=== PATIENT | female | born 1945 | race Two or more races ===

== ENCOUNTER 2018-12-28 16:47 | Inpatient (IN) | payer MEDICARE, MEDICAID ==
[2018-12-28] VITALS (9 sets, daily range): BP systolic 67–109; BP diastolic 49–73
[~2018-12-28] VITALS: Ht 157.5 cm; Wt 63.5 kg
--- NOTE | 2018-12-28 17:13 | NUR ---
ED Nurse Note: Pt BIBA from her MD appointment due to complaints of abdominal pain /. Non radiating x 2 days. Pt went to her MD and upon arrival, she was hypotensive. Upona arrival to ED, pt had a BP of 69/50. Skin warm tot ouch. Skin appeared to be jaundice in color. Hx of bile duct stage IV cancer and noted to have a drainage on her LLQ. A + O x4. Yakut speaking. Pt is full code.
--- NOTE | 2018-12-28 17:25 | NUR ---
ED Nurse Note: Xray has been completed.
[2018-12-28 17:31] LABS: HEMATOCRIT 40.9 % (37.0-47.0); HEMOGLOBIN 13.6 G/DL (12.0-16.0); MEAN CORPUSCULAR VOLUME 90 FL (80-99); PLATELET COUNT 232 K/UL (150-450); RED BLOOD COUNT 4.54 M/UL (4.20-5.40); WHITE BLOOD COUNT 14.9 K/UL (4.8-10.8)
--- NOTE | 2018-12-28 18:22 | NUR ---
ED Nurse Note: BLOOD DRAWN FOR CMP AND SENT TO LAB.
--- NOTE | 2018-12-28 18:37 | Emergency Room Report ---
History of Present Illness General Chief Complaint: General Complaint Source: Family Member, Medical Record Present Illness HPI Patient presents from Dr alcantara office The son reports that they had presented to the office secondary to increased abdominal pain patient was found to be ill appearing and 911 was contacted Patient was brought to the emergency room Patient herself appears confused and somnolent also appears short of breath The son provides information of the patient has been diagnosed with metastatic disease involving the biliary tract also left upper chest region possibly They were at 2 different hospitals previously At [facility] last week for about 7 days And are being considered for possible chemotherapy/radiation Patient has been weaker than usual over the past several days Also increased cough Allergies: Coded Allergies: No Known Allergies (Unverified , 12/28/18) Patient History Limited by: medical condition Past Medical History: see triage record Pertinent Family History: none Now: No Reviewed Nursing Documentation: PMH: Agreed; PSxH: Agreed Nursing Documentation-PMH Past Medical History: No History, Except For Hx Asthma: Yes Hx Cancer: Yes - Colon, Breast Review of Systems All Other Systems: limited - Other than the ones mentioned in the history of present illness all others are reviewed however they do stay limited due to the patient's mental status Physical Exam Vital Signs Date Time Temp Pulse Resp B/P (MAP) Pulse Ox O2 Delivery O2 Flow Rate FiO2 12/28/18 16:43 98 16 66/50 100 Room Air 12/28/18 17:15 15.0 95 12/28/18 17:15 97.8 Sp02 EP Interpretation: reviewed, normal General Appearance: moderate distress - Patient appears jaundiced, presents hypotensive Head: normocephalic, atraumatic Eyes: bilateral eye PERRL, bilateral eye other - Scleral icterus ENT: normal pharynx, no angioedema Neck: supple, thyroid normal Respiratory: crackles - Bilaterally with mild wheezing Cardiovascular #1: regular rate, rhythm Gastrointestinal: soft, other - Diffusely uncomfortable Genitourinary: no CVA tenderness Musculoskeletal: other - Patient is weak however able to move extremities Neurologic: oriented x3 - Sluggish however responds when coached, responsive Skin: other - Jaundice Lymphatic: no adenopathy Procedures Critical Care Time Critical Care Time 70 minutes for multiple re-evaluations, initial critical presentation concerning for cardiopulmonary arrest and possible not including any procedural time Central Line Central Line : Consent: Emergent Central Line Lumen: triple Maximal Sterile Barrier Tech: yes cap, yes mask, yes sterile gown, yes sterile gloves, yes large sterile sheet, yes hand hygiene, yes chlorhexidine prep Central Line Postion: femoral (R) Anesthesia: Lidocaine cc's of anesthesia: 4 Complications: none Central Line Post Position: sutured Attempts: One Patient Tolerated: Well Complications: None Medical Decision Making Diagnostic Impression: Primary Impression: Cholangiocarcinoma Additional Impressions: Septic shock Hyperbilirubinemia ER Course Patient presents in critical condition Hypotensive Patient has been recently diagnosed with cholangiocarcinoma she has been to 2 other hospitals and most recently at [facility] last week Patient contacted her real estate acquisition analyst after not feeling well with increased abdominal pain upon presenting to the office patient was sent 911 initially requested for [facility] given her recent hospitalization there however patient was routed to our hospital for most accessible I spoke to the patient's Hemoccult just patient has critical diagnoses including metastatic disease Patient's family reported full CODE STATUS After aggressive IV hydration patient required central line placement for possible pressor initiation CT imaging was initially ordered as well for IV contrast however the chemistry hemolyzed on several occasions and in order not to delay any further imaging was done without contrast Showing possible cholecystitis Patient initiated on IV antibiotics further hydration Blood work reveals findings consistent with cholangiocarcinoma significantly elevated total bilirubin Patient also has coagulopathy likely related to liver disease patient is in critical condition with poor prognosis I tried to discuss this with family as well as best as possible Sepsis reexamination Time:20:00 VS refer to nursing note cvs: RRR respiratory: improved respiration peripheral pulses: 2+radial cap refill:<2 seconds skin exam: warm, dry, not mottled Patient remains in critical condition and admitted for further inpatient intervention Labs Test 12/28/18 17:00 12/28/18 18:45 12/28/18 19:30 12/28/18 21:00 White Blood Count 14.9 K/UL (4.8-10.8) Red Blood Count 4.54 M/UL (4.20-5.40) Hemoglobin 13.6 G/DL (12.0-16.0) Hematocrit 40.9 % (37.0-47.0) Mean Corpuscular Volume 90 FL (80-99) Mean Corpuscular Hemoglobin 30.0 PG (27.0-31.0) Mean Corpuscular Hemoglobin Concent 33.4 G/DL (32.0-36.0) Red Cell Distribution Width 16.0 % (11.6-14.8) Platelet Count 232 K/UL (150-450) Mean Platelet Volume 6.2 FL (6.5-10.1) Neutrophils (%) (Auto) % (45.0-75.0) Lymphocytes (%) (Auto) % (20.0-45.0) Monocytes (%) (Auto) % (1.0-10.0) Eosinophils (%) (Auto) % (0.0-3.0) Basophils (%) (Auto) % (0.0-2.0) Differential Total Cells Counted 100 Neutrophils % (Manual) 83 % (45-75) Lymphocytes % (Manual) 8 % (20-45) Monocytes % (Manual) 6 % (1-10) Eosinophils % (Manual) 0 % (0-3) Basophils % (Manual) 0 % (0-2) Band Neutrophils 3 % (0-8) Platelet Estimate Adequate Platelet Morphology Normal Anisocytosis 1+ Arterial Blood pH 7.424 (7.350-7.450) Arterial Blood Partial Pressure CO2 19.5 mmHg (35.0-45.0) Arterial Blood Partial Pressure O2 78.8 mmHg (75.0-100.0) Arterial Blood HCO3 12.5 mmol/L (22.0-26.0) Arterial Blood Oxygen Saturation 94.4 % (95-100) Arterial Blood Base Excess -9.7 (-2-2) Dk Test Positive Urine Color Brown Urine Appearance Cloudy Urine pH 6.5 (4.5-8.0) Urine Specific Tobias 1.020 (1.005-1.035) Urine Protein 3+ (NEGATIVE) Urine Glucose (UA) Negative (NEGATIVE) Urine Ketones 2+ (NEGATIVE) Urine Blood 2+ (NEGATIVE) Urine Nitrite Negative (NEGATIVE) Urine Bilirubin 3+ (NEGATIVE) Urine Ictotest Positive (NEGATIVE) Urine Urobilinogen 4 MG/DL (0.0-1.0) Urine Leukocyte Esterase Negative (NEGATIVE) Urine RBC 2-4 /HPF (0 - 2) Urine WBC 0 /HPF (0 - 2) Urine Squamous Epithelial Cells Occasional /LPF Urine Amorphous Sediment Moderate /LPF (NONE) Urine Bacteria Few /HPF (NONE) Sodium Level 130 MMOL/L (136-145) Potassium Level 5.3 MMOL/L (3.5-5.1) Chloride Level 97 MMOL/L (98-107) Carbon Dioxide Level 17 MMOL/L (21-32) Anion Gap 16 mmol/L (5-15) Blood Urea Nitrogen 22 mg/dL (7-18) Creatinine 1.0 MG/DL (0.55-1.30) Estimat Glomerular Filtration Rate mL/min (>60) Glucose Level 75 MG/DL (74-106) Uric Acid 6.3 MG/DL (2.6-7.2) Calcium Level 7.4 MG/DL (8.5-10.1) Total Bilirubin 5.9 MG/DL (0.2-1.0) Direct Bilirubin 5.0 MG/DL (0.0-0.3) Aspartate Amino Transf (AST/SGOT) 240 U/L (15-37) Alanine Aminotransferase (ALT/SGPT) 78 U/L (12-78) Alkaline Phosphatase 280 U/L (46-116) Total Creatine Kinase 196 U/L (26-308) Creatine Kinase MB 2.3 NG/ML (0.0-3.6) Creatine Kinase MB Relative Index 1.2 Troponin I 0.124 ng/mL (0.000-0.056) Total Protein 5.2 G/DL (6.4-8.2) Albumin 1.1 G/DL (3.4-5.0) Globulin 4.1 g/dL Albumin/Globulin Ratio 0.3 (1.0-2.7) Test 12/29/18 00:12 12/29/18 04:00 12/29/18 07:50 12/29/18 18:00 Urine Color Zarina Urine Appearance Cloudy Urine pH 5 (4.5-8.0) Urine Specific Tobias 1.020 (1.005-1.035) Urine Protein 3+ (NEGATIVE) Urine Glucose (UA) Negative (NEGATIVE) Urine Ketones 1+ (NEGATIVE) Urine Blood 2+ (NEGATIVE) Urine Nitrite Negative (NEGATIVE) Urine Bilirubin 3+ (NEGATIVE) Urine Ictotest Positive (NEGATIVE) Urine Urobilinogen 4 MG/DL (0.0-1.0) Urine Leukocyte Esterase 1+ (NEGATIVE) Urine RBC 2-4 /HPF (0 - 2) Urine WBC 2-4 /HPF (0 - 2) Urine Squamous Epithelial Cells Many /LPF (NONE/OCC) Urine Calcium Oxalate Crystals Few /LPF (NONE) Urine Amorphous Sediment Many /LPF (NONE) Urine Bacteria Many /HPF (NONE) Urine Eosinophils None seen (NONE SEEN) Urine Random Sodium < 20 mmol/L (20-110) Urine Creatinine 211.9 MG/DL (30.0-125.0) Urine Potassium Timed 63 mmol/L (12-62) White Blood Count 14.8 K/UL (4.8-10.8) Red Blood Count 3.81 M/UL (4.20-5.40) Hemoglobin 11.6 G/DL (12.0-16.0) Hematocrit 34.7 % (37.0-47.0) Mean Corpuscular Volume 91 FL (80-99) Mean Corpuscular Hemoglobin 30.4 PG (27.0-31.0) Mean Corpuscular Hemoglobin Concent 33.3 G/DL (32.0-36.0) Red Cell Distribution Width 16.4 % (11.6-14.8) Platelet Count 231 K/UL (150-450) Mean Platelet Volume 6.8 FL (6.5-10.1) Neutrophils (%) (Auto) % (45.0-75.0) Lymphocytes (%) (Auto) % (20.0-45.0) Monocytes (%) (Auto) % (1.0-10.0) Eosinophils (%) (Auto) % (0.0-3.0) Basophils (%) (Auto) % (0.0-2.0) Sodium Level 128 MMOL/L (136-145) Potassium Level 5.0 MMOL/L (3.5-5.1) Chloride Level 97 MMOL/L (98-107) Carbon Dioxide Level 15 MMOL/L (21-32) Anion Gap 16 mmol/L (5-15) Blood Urea Nitrogen 23 mg/dL (7-18) Creatinine 1.0 MG/DL (0.55-1.30) Estimat Glomerular Filtration Rate mL/min (>60) Glucose Level 114 MG/DL (74-106) Calcium Level 7.1 MG/DL (8.5-10.1) Total Bilirubin 6.3 MG/DL (0.2-1.0) Direct Bilirubin 5.0 MG/DL (0.0-0.3) Aspartate Amino Transf (AST/SGOT) 484 U/L (15-37) Alanine Aminotransferase (ALT/SGPT) 139 U/L (12-78) Alkaline Phosphatase 299 U/L (46-116) Total Protein 5.2 G/DL (6.4-8.2) Albumin 1.2 G/DL (3.4-5.0) Globulin 4.0 g/dL Albumin/Globulin Ratio 0.3 (1.0-2.7) Arterial Blood pH 7.410 (7.350-7.450) Arterial Blood Partial Pressure CO2 17.0 mmHg (35.0-45.0) Arterial Blood Partial Pressure O2 60.1 mmHg (75.0-100.0) Arterial Blood HCO3 10.5 mmol/L (22.0-26.0) Arterial Blood Oxygen Saturation 87.3 % (95-100) Arterial Blood Base Excess -11.6 (-2-2) Dk Test Positive Prothrombin Time > 100.0 SEC (9.30-11.50) Prothromb Time International Ratio > 10.0 (0.9-1.1) Activated Partial Thromboplast Time 58 SEC (23-33) Rhythm Strip Diag. Results EP Interpretation: yes Rate: 105 Rhythm: no PVC's, no ectopy, other - Sinus tach Chest X-Ray Diagnostic Results Chest X-Ray Diagnostic Results : Chest X-Ray Ordered: Yes # of Views/Limited/Complete: 1 View Indication: Chest Pain EP Interpretation: Yes Interpretation: no pneumothorax, other - Left lower lobe effusion, borderline cardiomegaly Impression: Other - Left-sided effusion Electronically Signed by: Vasu Perez DO CT/MRI/US Diagnostic Results CT/MRI/US Diagnostic Results : Impression CT abdomen pelvis Findings: Entering via the left hepatic lobe is an endobiliary drainage catheter. This is an internal/external drain, extends through the common bile duct. There is also a plastic endobiliary stent, extending from a right lobe duct across the common bile duct and into the duodenum. The bile ducts are nondilated. The gallbladder is markedly distended and the gallbladder wall is edematous. Multiple stones are seen within the gallbladder. Metallic densities which are probably vascular embolization coils are seen in the liver near the hepatic hilum. Numerous enlarged nodes are seen in the periduodenal fat and within the lesser sac. Focal but ill-defined fluid collection is seen within the pericholecystic fat medial to the gallbladder. This measures approximately 4.4 cm AP by 2.6 cm transverse by 3.6 cm craniocaudad. There is also small amount of free intraperitoneal fluid surrounding the liver, in the pelvis, and in the right paracolic gutter. Lack of IV contrast limits assessment of the liver; no discrete hepatic hilar mass demonstrated. 3 cysts are seen in the left hepatic lobe. Subcentimeter low-attenuation lesions are seen in segment IVb which are too small to characterize There is a moderate to large left pleural effusion. This results in compressive atelectasis of much of the right lower lobe. There is trace right pleural fluid and some dependent atelectasis involving the posterior right lower lobe Lack of IV contrast limits assessment of the other solid organs. The pancreas and spleen are unremarkable. The left adrenal is diffusely hypertrophic. Left kidney demonstrates a small focus of increased attenuation in the lower pole, could represent a calyceal calcification or or more likely a hyperdense cyst. The right kidney is unremarkable. Prominent retroperitoneal nodes are demonstrated measuring up to 13 mm in diameter. No pelvic mass or adenopathy. A Drake catheter is present within the bladder. Some urine is seen within the bladder despite the Drake catheter. There is fairly extensive colonic diverticulosis. The appendix is normal. No small bowel distention. No free intraperitoneal gas is demonstrated. The stomach is somewhat distended with fluid. The distal esophagus is unremarkable. There is generalized edema of the subcutaneous fat and slight congestion of the mesenteric fat. The bones are unremarkable except for mild degenerative changes of the spine Impression: Cholelithiasis. Edematous gallbladder wall with gallbladder wall distention and pericholecystic fluid are suspicious for acute cholecystitis. Correlate with clinical findings, consider hepatobiliary nuclear scan as clinically indicated Left-sided internal/external biliary drain and endobiliary stent noted. No biliary ductal dilatation Lymphadenopathy within the peripancreatic/periduodenal fat, and lesser sac likely related to stated clinical history of biliary neoplasm Free intraperitoneal fluid Other manifestations of anasarca, including diffuse edema of the subcutaneous fat, bilateral pleural effusions Evidence of prior vascular embolic procedure, presumably to the central hepatic arteries Colonic diverticulosis Liver cysts. Subcentimeter low-attenuation liver lesions, too small to characterize, most likely benign simple cysts or bile hamartomas Nonspecific hypertrophy of the left adrenal Gastric distention, nonspecific, could indicate recent fluid ingestion, gastric outlet obstruction or gastroparesis also possible Drake catheter. Some retained urine despite the Drake catheter Left lower pole renal calyceal calcification or more likely tiny hyperdense cyst Last Vital Signs Date Time Temp Pulse Resp B/P (MAP) Pulse Ox O2 Delivery O2 Flow Rate FiO2 12/28/18 17:15 97.8 111 28 69/50 95 Simple Mask 15.0 95 Status: improved Disposition: ADMITTED INPATIENT Condition: Critical Referrals: Gordo Alcantara MD (PCP) Vasu Perez DO Dec 28, 2018 18:37
[2018-12-28] MEDS ORDERED: Isovue-300 100ml vial INJ PRN (18:45)
--- NOTE | 2018-12-28 19:06 | NUR ---
HAND-OFF: Report given to Walter Delaney RN.
[2018-12-28] MEDS ORDERED: Miralax 17gm pkt ORAL PRN (19:15)
--- NOTE | 2018-12-28 19:30 | NUR ---
ED Nurse Note: lion inserted; 16 estonian. urine MRSA VRE CRE collected; sent down to lab.
[2018-12-28] MEDS ORDERED: Albuterol/Ipratropium 3ml neb HHN PRN (19:35)
--- NOTE | 2018-12-28 19:45 | NUR ---
ED Nurse Note: Called lab for draw; will come in [address]
[2018-12-28 19:51] LABS: APPEARANCE,URINE CLOUDY; BILIRUBIN, URINE 3+ (NEGATIVE); COLOR,URINE BROWN; GLUCOSE, URINE (UA) NEGATIVE (NEGATIVE); KETONES,URINE 2+ (NEGATIVE); LEUKOCYTE ESTERASE ,URINE NEGATIVE (NEGATIVE); NITRITE,URINE NEGATIVE (NEGATIVE); PH,URINE 6.5 (4.5-8.0); PROTEIN,URINE 3+ (NEGATIVE); UROBILINOGEN,URINE 4 MG/DL (0.0-1.0)
--- NOTE | 2018-12-28 20:00 | NUR ---
ED Nurse Note: PT DOWN TO CT
[2018-12-28] MEDS ORDERED: Amikacin Rx to dose MISC PRN (20:30)
--- NOTE | 2018-12-28 20:30 | NUR ---
ED Nurse Note: PT BACK FROM CT
--- NOTE | 2018-12-28 20:32 | NUR ---
ED Nurse Note: LAB AT BEDSIDE.
--- NOTE | 2018-12-28 21:00 | NUR ---
ED Nurse Note: TLC PLACED BY ERMD. BLOOD COLLECTED; SENT DOWN TO LAB.
[2018-12-28] MEDS ORDERED: Piperacillin/Tazobactam 3.375 GM in NS 110 ML IVPB ONE (21:15)
[2018-12-28] MEDS ORDERED: Levophed 4mg/4mL Inj IV ONE (21:38)
[2018-12-28 22:06] LABS: ALANINE AMINOTRANSFERASE 78 U/L (12-78); ALBUMIN 1.1 G/DL (3.4-5.0); ALBUMIN/GLOBULIN RATIO 0.3 (1.0-2.7); ALKALINE PHOSPHATASE 280 U/L (46-116); ANION GAP 16 mmol/L (5-15); ASPARTATE AMINO TRANSFERASE 240 U/L (15-37); BILIRUBIN,TOTAL 5.9 MG/DL (0.2-1.0); BLOOD UREA NITROGEN 22 mg/dL (7-18); CALCIUM 7.4 MG/DL (8.5-10.1); CARBON DIOXIDE 17 MMOL/L (21-32); CHLORIDE 97 MMOL/L (98-107); CKMB 2.3 NG/ML (0.0-3.6); CREATINE KINASE 177 U/L (26-308); POTASSIUM 5.3 MMOL/L (3.5-5.1); SODIUM 130 MMOL/L (136-145)
--- NOTE | 2018-12-28 22:40 | NUR ---
TRANSFER TO FLOOR: Patient transferred to ICU [address] as ordered, per MD FERCHO . Report given to COLLEEN VALDEZ. PATIENT IN STABLE CONDITION, SKIN INTACT, SWABS SENT. BELONGINGS LIT COMPLETED WITH RECEIVING RN.
[2018-12-28 23:07] LABS: CREATINE KINASE 196 U/L (26-308)
[2018-12-28] MEDS: Morphine Sulfate 2mg/ml Inj(IV/IM USE ONLY) IVP PRN (23:16)
[2018-12-28] MEDS: Heparin 5000 units/ml inj SUBQ SCH (23:16)
[2018-12-28] MEDS ORDERED: Vancomycin 1 GM in D5W 275 ML IV SCH (23:45)
--- NOTE | 2018-12-28 23:50 | NUR ---
NURSE NOTES: Patient received from REGISTRAR ASSISTANT. Patient is awake, AAOX4. Patient presents with a simple mask at 10L/ Saturating 100%. Patient is cold to touch, temperature noted to be 97.5. Patient has a right femoral TLC running Levophed at 18mcg. R AC 20 and FA 22G SL. Drake catheter noted.
[2018-12-29] VITALS (52 sets, daily range): BP systolic 77–114; BP diastolic 43–92
[2018-12-29] MEDS ORDERED: Vancomycin 1gm/D5W 275ml IVPB ONE ×2
--- NOTE | 2018-12-29 | NUR ---
NURSE NOTES: Maintenance fluids hung, BP is stable with the pressors. Pressors are slowly being titrated down. Vanco hung. Patient does get Short of breath upon with exertion. Simple mask remains on the patient for the time being at 8L.
[2018-12-29 01:00] LABS: APPEARANCE,URINE CLOUDY; BILIRUBIN, URINE 3+ (NEGATIVE); GLUCOSE, URINE (UA) NEGATIVE (NEGATIVE); KETONES,URINE 1+ (NEGATIVE); LEUKOCYTE ESTERASE ,URINE 1+ (NEGATIVE); NITRITE,URINE NEGATIVE (NEGATIVE); PH,URINE 5 (4.5-8.0); PROTEIN,URINE 3+ (NEGATIVE); UROBILINOGEN,URINE 4 MG/DL (0.0-1.0)
[2018-12-29 01:33] LABS: COLOR,URINE AMBER
--- NOTE | 2018-12-29 02:00 | NUR ---
NURSE NOTES: Patient is cold to touch and cannot get a definite temperature via axillary or oral method. Bianca hugger applied for patients comfort. Patient remains on simple mask and saturating Above 92%. BP stabilizing as pressors being titrating down.
[2018-12-29] MEDS: Ertapenem 1 GM in NS 55 ML IV SCH (02:11)
[2018-12-29] MEDS ORDERED: NS IV SCH (04:00)
[2018-12-29] MEDS ORDERED: AMIKACIN IV SCH (04:00)
--- NOTE | 2018-12-29 04:00 | NUR ---
NURSE NOTES: Patient remains on simple mask now at 10L. Patient will have episodes of SOB, especially during positional changes. Patient unable to lie flat for long periods of time. A breathing treatment was given earlier and it seemed to help the patient. Patient remains on pressors. Central line dressing changed and biliary duct drainage site dressing changed.
[2018-12-29 05:21] LABS: HEMATOCRIT 34.7 % (37.0-47.0); HEMOGLOBIN 11.6 G/DL (12.0-16.0); MEAN CORPUSCULAR VOLUME 91 FL (80-99); PLATELET COUNT 231 K/UL (150-450); RED BLOOD COUNT 3.81 M/UL (4.20-5.40); RED CELL DISTRIBUTION WIDTH 16.4 % (11.6-14.8); WHITE BLOOD COUNT 14.8 K/UL (4.8-10.8)
[2018-12-29 05:53] LABS: ALANINE AMINOTRANSFERASE 139 U/L (12-78); ALBUMIN 1.2 G/DL (3.4-5.0); ALBUMIN/GLOBULIN RATIO 0.3 (1.0-2.7); ALKALINE PHOSPHATASE 299 U/L (46-116); ANION GAP 16 mmol/L (5-15); ASPARTATE AMINO TRANSFERASE 484 U/L (15-37); BILIRUBIN,TOTAL 6.3 MG/DL (0.2-1.0); BLOOD UREA NITROGEN 23 mg/dL (7-18); CALCIUM 7.1 MG/DL (8.5-10.1); CARBON DIOXIDE 15 MMOL/L (21-32); CHLORIDE 97 MMOL/L (98-107); SODIUM 128 MMOL/L (136-145)
--- NOTE | 2018-12-29 08:00 | NUR ---
NURSE NOTES: Received patient alert, bruneian speaking. Denies pair or discomfort at the time. Asked for only 1 blanket as shes feeling "hot" no fever noted. gambling monitor showing ST HR 103. Simple mask 8 L SOB noted, MD aware, ABG results sent, no new orders. Lung sounds diminished bilaterally. Patient is NPO. Hypoactive bowel sounds on all 4 quadrants. Patient has billiary drainage duct L upper quadrant placed about 7 days ago. Skin intact. R fem TLC R forearm 22 R ac 20. NS at 100, Levophed at 14 mcg/hr - MAP above 65. 2Decho unable to do staff noted that patient cannot lay flat, uncomfortable and refuses to be touched at this time. Turned and repositioned. Call light within reach, bed on lowest position, bed alarm on for safety, HOB elevated to 90 degrees for optimal oxygenation. Will continue plan of care.
[2018-12-29] MEDS: Heparin 5000 units/ml inj SUBQ SCH (08:22)
[2018-12-29] MEDS: Pantoprazole Inj IVP SCH (08:22)
--- NOTE | 2018-12-29 08:33 | Diagnostic Imaging Report ---
Indication: Chest pain Technique: One view of the chest Comparison: none Findings: Band of atelectasis or scarring is seen in the right perihilar region. There is obscuration left hemidiaphragm, may indicate a small amount of pleural fluid or consolidation. A drainage catheter and what are probably vascular embolization coils project in the upper abdomen. Impression: Obscured left hemidiaphragm; this is demonstrated on subsequent CT scan to be due to a left pleural effusion Right perihilar atelectasis
--- NOTE | 2018-12-29 08:47 | NUR ---
RADIOLOGY DEPT., CHEST X-RAY DONE.-P.DYE
--- NOTE | 2018-12-29 09:31 | Diagnostic Imaging Report ---
Indication: Abdominal pain. History of biliary carcinoma Technique: Spiral acquisitions obtained through the abdomen and pelvis. No oral contrast utilized, per emergency room physician request No IV contrast utilized, per referring physician request.. Multiplanar reconstructions were generated. Total dose length product 879.61 mGycm. CTDIvol(s) 16.38 mGy. Dose reduction achieved using automated exposure control Comparison: None Findings: Entering via the left hepatic lobe is an endobiliary drainage catheter. This is an internal/external drain, extends through the common bile duct. There is also a plastic endobiliary stent, extending from a right lobe duct across the common bile duct and into the duodenum. The bile ducts are nondilated. The gallbladder is markedly distended and the gallbladder wall is edematous. Multiple stones are seen within the gallbladder. Metallic densities which are probably vascular embolization coils are seen in the liver near the hepatic hilum. Numerous enlarged nodes are seen in the periduodenal fat and within the lesser sac. Focal but ill-defined fluid collection is seen within the pericholecystic fat medial to the gallbladder. This measures approximately 4.4 cm AP by 2.6 cm transverse by 3.6 cm craniocaudad. There is also small amount of free intraperitoneal fluid surrounding the liver, in the pelvis, and in the right paracolic gutter. Lack of IV contrast limits assessment of the liver; no discrete hepatic hilar mass demonstrated. 3 cysts are seen in the left hepatic lobe. Subcentimeter low-attenuation lesions are seen in segment IVb which are too small to characterize There is a moderate to large left pleural effusion. This results in compressive atelectasis of much of the right lower lobe. There is trace right pleural fluid and some dependent atelectasis involving the posterior right lower lobe Lack of IV contrast limits assessment of the other solid organs. The pancreas and spleen are unremarkable. The left adrenal is diffusely hypertrophic. Left kidney demonstrates a small focus of increased attenuation in the lower pole, could represent a calyceal calcification or or more likely a hyperdense cyst. The right kidney is unremarkable. Prominent retroperitoneal nodes are demonstrated measuring up to 13 mm in diameter. No pelvic mass or adenopathy. A Drake catheter is present within the bladder. Some urine is seen within the bladder despite the Drake catheter. There is fairly extensive colonic diverticulosis. The appendix is normal. No small bowel distention. No free intraperitoneal gas is demonstrated. The stomach is somewhat distended with fluid. The distal esophagus is unremarkable. There is generalized edema of the subcutaneous fat and slight congestion of the mesenteric fat. The bones are unremarkable except for mild degenerative changes of the spine Impression: Cholelithiasis. Edematous gallbladder wall with gallbladder wall distention and pericholecystic fluid are suspicious for acute cholecystitis. Correlate with clinical findings, consider hepatobiliary nuclear scan as clinically indicated Left-sided internal/external biliary drain and endobiliary stent noted. No biliary ductal dilatation Lymphadenopathy within the peripancreatic/periduodenal fat, and lesser sac likely related to stated clinical history of biliary neoplasm Free intraperitoneal fluid Other manifestations of anasarca, including diffuse edema of the subcutaneous fat, bilateral pleural effusions Evidence of prior vascular embolic procedure, presumably to the central hepatic arteries Colonic diverticulosis Liver cysts. Subcentimeter low-attenuation liver lesions, too small to characterize, most likely benign simple cysts or bile hamartomas Nonspecific hypertrophy of the left adrenal Gastric distention, nonspecific, could indicate recent fluid ingestion, gastric outlet obstruction or gastroparesis also possible Drake catheter. Some retained urine despite the Drake catheter Left lower pole renal calyceal calcification or more likely tiny hyperdense cyst This agrees with the preliminary interpretation provided overnight by [facility] teleradiology service. The CT scanner at [facility] is accredited by the [employer] and the scans are performed using protocols designed to limit radiation exposure to as low as reasonably achievable to attain images of sufficient resolution adequate for diagnostic evaluation.
[2018-12-29] MEDS: Morphine Sulfate 2mg/ml Inj(IV/IM USE ONLY) IVP PRN ×3 (09:42→20:53)
--- NOTE | 2018-12-29 09:44 | Consultation ---
History of Present Illness General Date patient seen: Dec 29, 2018 Chief Complaint: General Complaint Present Illness HPI 73 year old female with hx of metastatic disease involving the biliary tract, developed increased abdominal pain patient and went to see her oncologist, Dr. Alcantara, who called 911. She was brought to the emergency room. Patient appeared confused and somnolent and short of breath. She was hypotensive and started on Levophed and transferred to ICU. She is awake now, but confused and c/o generalized body pain. She looks chronically ill and icteric. Allergies: Coded Allergies: No Known Allergies (Unverified , 12/28/18) Patient History Healthcare decision maker Parag Quick (SON) Resuscitation status Advanced Directive on File No Past Medical/Surgical History Past Medical/Surgical History: (1) Cholangiocarcinoma (2) Hyperbilirubinemia Review of Systems Constitutional: Reports: no symptoms All Other Systems: negative except mentioned in HPI Physical Exam General Appearance: cachetic Lines, tubes and drains: peripheral HEENT: normocephalic, atraumatic Neck: non-tender, normal alignment Respiratory/Chest: chest wall non-tender, rhonchi - left, rhonchi - right Cardiovascular/Chest: normal peripheral pulses Abdomen: normal bowel sounds, non tender Genitourinary/Rectal: normal genital exam, normal rectal exam Extremities: normal range of motion, non-tender, non-pitting Skin Exam: normal pigmentation Neurologic: manager case II-XII grossly normal Last 24 Hour Vital Signs Date Time Temp Pulse Resp B/P (MAP) Pulse Ox O2 Delivery O2 Flow Rate FiO2 12/29/18 08:30 103 26 85/63 (70) 95 12/29/18 08:00 Simple Mask 10.0 12/29/18 08:00 98.2 104 26 88/64 (72) 98 12/29/18 08:00 103 12/29/18 07:30 105 26 88/65 (73) 95 12/29/18 07:03 103 18 Simple Mask 8.0 60 12/29/18 07:03 Simple Mask 8.0 60 12/29/18 07:03 100 Simple Mask 8.0 60 12/29/18 07:00 102 22 84/62 (69) 95 12/29/18 06:45 103 24 83/61 (68) 95 12/29/18 06:30 103 24 90/63 (72) 95 12/29/18 06:15 102 22 99/61 (74) 94 12/29/18 06:00 102 24 89/56 (67) 96 12/29/18 06:00 83/61 12/29/18 05:45 102 23 90/50 (63) 97 12/29/18 05:42 102 22 88/57 (67) 96 12/29/18 05:31 102 23 87/59 (68) 95 12/29/18 05:30 101 23 77/62 (67) 96 12/29/18 05:00 77/39 12/29/18 05:00 102 22 87/56 (66) 96 12/29/18 04:47 93/55 12/29/18 04:30 104 25 93/55 (68) 90 12/29/18 04:12 102 31 97 Venturi Mask 10.0 35 12/29/18 04:00 106 12/29/18 04:00 Simple Mask 10.0 12/29/18 04:00 97.3 103 27 93/61 (72) 98 12/29/18 03:58 101 27 97 Venturi Mask 10.0 35 12/29/18 03:30 103 25 91/59 (70) 97 12/29/18 03:00 103 25 88/59 (69) 95 12/29/18 03:00 101/63 12/29/18 02:30 101 24 101/65 (77) 96 12/29/18 02:11 90/49 12/29/18 02:00 104 25 95/77 (83) 94 12/29/18 02:00 89/55 12/29/18 01:32 Venturi Mask 10.0 35 12/29/18 01:32 99 Venturi Mask 10.0 35 12/29/18 01:30 102 21 91/66 (74) 98 12/29/18 01:00 92/61 12/29/18 01:00 101 22 91/64 (73) 100 12/29/18 00:30 103 23 96/54 (68) 100 12/29/18 00:06 100/63 12/29/18 00:00 101 21 89/60 (70) 99 12/29/18 00:00 99/65 12/29/18 00:00 Simple Mask 8.0 12/28/18 23:45 98 23 95/70 (78) 100 12/28/18 23:30 93 22 92/66 (75) 100 12/28/18 23:21 95 12/28/18 23:19 Simple Mask 8.0 12/28/18 23:17 67/49 12/28/18 23:15 99 22 96/73 (81) 100 12/28/18 23:00 97.5 95 24 109/63 (78) 100 12/28/18 22:40 98/61 12/28/18 22:40 97.8 102 24 98/61 100 Simple Mask 15.0 95 12/28/18 22:40 97.8 102 24 98/61 100 Simple Mask 15.0 95 12/28/18 22:35 99/81 12/28/18 22:30 111/69 12/28/18 22:25 106/68 12/28/18 22:20 108/63 12/28/18 22:15 90/65 12/28/18 22:10 82/55 12/28/18 22:05 79/56 12/28/18 22:00 72/50 12/28/18 21:55 70/43 12/28/18 21:50 97.8 106 25 67/49 92 Simple Mask 15.0 95 12/28/18 21:50 67/49 12/28/18 20:00 97.8 103 24 88/56 92 Simple Mask 15.0 95 12/28/18 19:10 97.8 106 22 80/54 95 Simple Mask 15.0 95 12/28/18 17:15 97.8 111 28 69/50 95 Simple Mask 15.0 95 12/28/18 17:15 111 28 Simple Mask 15.0 95 12/28/18 16:43 98 16 66/50 100 Room Air Intake and Output 12/28/18 12/29/18 19:00 07:00 Intake Total 3860.50 ml Output Total 285 ml Balance 3575.50 ml Intake IV Total 3860.50 ml Output Urine Total 285 ml Laboratory Tests Test 12/28/18 17:00 12/28/18 18:45 12/28/18 19:30 12/28/18 21:00 White Blood Count 14.9 K/UL (4.8-10.8) H Red Blood Count 4.54 M/UL (4.20-5.40) Hemoglobin 13.6 G/DL (12.0-16.0) Hematocrit 40.9 % (37.0-47.0) Mean Corpuscular Volume 90 FL (80-99) Mean Corpuscular Hemoglobin 30.0 PG (27.0-31.0) Mean Corpuscular Hemoglobin Concent 33.4 G/DL (32.0-36.0) Red Cell Distribution Width 16.0 % (11.6-14.8) H Platelet Count 232 K/UL (150-450) Mean Platelet Volume 6.2 FL (6.5-10.1) L Neutrophils (%) (Auto) % (45.0-75.0) Lymphocytes (%) (Auto) % (20.0-45.0) Monocytes (%) (Auto) % (1.0-10.0) Eosinophils (%) (Auto) % (0.0-3.0) Basophils (%) (Auto) % (0.0-2.0) Differential Total Cells Counted 100 Neutrophils % (Manual) 83 % (45-75) H Lymphocytes % (Manual) 8 % (20-45) L Monocytes % (Manual) 6 % (1-10) Eosinophils % (Manual) 0 % (0-3) Basophils % (Manual) 0 % (0-2) Band Neutrophils 3 % (0-8) Platelet Estimate Adequate Platelet Morphology Normal Anisocytosis 1+ Arterial Blood pH 7.424 (7.350-7.450) Arterial Blood Partial Pressure CO2 19.5 mmHg (35.0-45.0) *L Arterial Blood Partial Pressure O2 78.8 mmHg (75.0-100.0) Arterial Blood HCO3 12.5 mmol/L (22.0-26.0) *L Arterial Blood Oxygen Saturation 94.4 % (95-100) L Arterial Blood Base Excess -9.7 (-2-2) *L Dk Test Positive Urine Color Brown Urine Appearance Cloudy Urine pH 6.5 (4.5-8.0) Urine Specific [place] 1.020 (1.005-1.035) Urine Protein 3+ (NEGATIVE) H Urine Glucose (UA) Negative (NEGATIVE) Urine Ketones 2+ (NEGATIVE) H Urine Blood 2+ (NEGATIVE) H Urine Nitrite Negative (NEGATIVE) Urine Bilirubin 3+ (NEGATIVE) H Urine Ictotest Positive (NEGATIVE) Urine Urobilinogen 4 MG/DL (0.0-1.0) H Urine Leukocyte Esterase Negative (NEGATIVE) Urine RBC 2-4 /HPF (0 - 2) H Urine WBC 0 /HPF (0 - 2) Urine Squamous Epithelial Cells Occasional /LPF Urine Amorphous Sediment Moderate /LPF (NONE) H Urine Bacteria Few /HPF (NONE) Sodium Level 130 MMOL/L (136-145) L Potassium Level 5.3 MMOL/L (3.5-5.1) H Chloride Level 97 MMOL/L (98-107) L Carbon Dioxide Level 17 MMOL/L (21-32) L Anion Gap 16 mmol/L (5-15) H Blood Urea Nitrogen 22 mg/dL (7-18) H Creatinine 1.0 MG/DL (0.55-1.30) Estimat Glomerular Filtration Rate mL/min (>60) Glucose Level 75 MG/DL (74-106) Uric Acid 6.3 MG/DL (2.6-7.2) Calcium Level 7.4 MG/DL (8.5-10.1) L Total Bilirubin 5.9 MG/DL (0.2-1.0) H Direct Bilirubin 5.0 MG/DL (0.0-0.3) H Aspartate Amino Transf (AST/SGOT) 240 U/L (15-37) H Alanine Aminotransferase (ALT/SGPT) 78 U/L (12-78) Alkaline Phosphatase 280 U/L (46-116) H Total Creatine Kinase 196 U/L (26-308) Creatine Kinase MB 2.3 NG/ML (0.0-3.6) Creatine Kinase MB Relative Index 1.2 Troponin I 0.124 ng/mL (0.000-0.056) Total Protein 5.2 G/DL (6.4-8.2) L Albumin 1.1 G/DL (3.4-5.0) L Globulin 4.1 g/dL Albumin/Globulin Ratio 0.3 (1.0-2.7) L Test 12/29/18 00:12 12/29/18 04:00 12/29/18 07:50 Urine Color [place] Urine Appearance Cloudy Urine pH 5 (4.5-8.0) Urine Specific [place] 1.020 (1.005-1.035) Urine Protein 3+ (NEGATIVE) H Urine Glucose (UA) Negative (NEGATIVE) Urine Ketones 1+ (NEGATIVE) H Urine Blood 2+ (NEGATIVE) H Urine Nitrite Negative (NEGATIVE) Urine Bilirubin 3+ (NEGATIVE) H Urine Ictotest Positive (NEGATIVE) Urine Urobilinogen 4 MG/DL (0.0-1.0) H Urine Leukocyte Esterase 1+ (NEGATIVE) H Urine RBC 2-4 /HPF (0 - 2) H Urine WBC 2-4 /HPF (0 - 2) Urine Squamous Epithelial Cells Many /LPF (NONE/OCC) H Urine Calcium Oxalate Crystals Few /LPF (NONE) Urine Amorphous Sediment Many /LPF (NONE) H Urine Bacteria Many /HPF (NONE) H Urine Eosinophils None seen (NONE SEEN) Urine Random Creatinine Pending Urine Random Microalbumin Pending Urine Random Sodium < 20 mmol/L (20-110) L Urine Creatinine 211.9 MG/DL (30.0-125.0) H Urine Microalbumin/Creatinine Ratio Pending Urine Potassium Timed 63 mmol/L (12-62) H White Blood Count 14.8 K/UL (4.8-10.8) H Red Blood Count 3.81 M/UL (4.20-5.40) L Hemoglobin 11.6 G/DL (12.0-16.0) L Hematocrit 34.7 % (37.0-47.0) L Mean Corpuscular Volume 91 FL (80-99) Mean Corpuscular Hemoglobin 30.4 PG (27.0-31.0) Mean Corpuscular Hemoglobin Concent 33.3 G/DL (32.0-36.0) Red Cell Distribution Width 16.4 % (11.6-14.8) H Platelet Count 231 K/UL (150-450) Mean Platelet Volume 6.8 FL (6.5-10.1) Neutrophils (%) (Auto) % (45.0-75.0) Lymphocytes (%) (Auto) % (20.0-45.0) Monocytes (%) (Auto) % (1.0-10.0) Eosinophils (%) (Auto) % (0.0-3.0) Basophils (%) (Auto) % (0.0-2.0) Sodium Level 128 MMOL/L (136-145) L Potassium Level 5.0 MMOL/L (3.5-5.1) Chloride Level 97 MMOL/L (98-107) L Carbon Dioxide Level 15 MMOL/L (21-32) L Anion Gap 16 mmol/L (5-15) H Blood Urea Nitrogen 23 mg/dL (7-18) H Creatinine 1.0 MG/DL (0.55-1.30) Estimat Glomerular Filtration Rate mL/min (>60) Glucose Level 114 MG/DL (74-106) H Calcium Level 7.1 MG/DL (8.5-10.1) L Total Bilirubin 6.3 MG/DL (0.2-1.0) H Direct Bilirubin 5.0 MG/DL (0.0-0.3) H Aspartate Amino Transf (AST/SGOT) 484 U/L (15-37) H Alanine Aminotransferase (ALT/SGPT) 139 U/L (12-78) H Alkaline Phosphatase 299 U/L (46-116) H Total Protein 5.2 G/DL (6.4-8.2) L Albumin 1.2 G/DL (3.4-5.0) L Globulin 4.0 g/dL Albumin/Globulin Ratio 0.3 (1.0-2.7) L Arterial Blood pH 7.410 (7.350-7.450) Arterial Blood Partial Pressure CO2 17.0 mmHg (35.0-45.0) *L Arterial Blood Partial Pressure O2 60.1 mmHg (75.0-100.0) L Arterial Blood HCO3 10.5 mmol/L (22.0-26.0) *L Arterial Blood Oxygen Saturation 87.3 % (95-100) *L Arterial Blood Base Excess -11.6 (-2-2) *L Dk Test Positive Microbiology Date/Time Source Procedure Growth Status 12/28/18 19:30 Rectum Received Height (Feet): 5 Height (Inches): 2.00 Weight (Pounds): 137 Medications Current Medications Medications (Trade) Dose Ordered Sig/Venus Route PRN Reason Start Time Stop Time Status Last Admin Dose Admin Acetaminophen (Tylenol) 650 mg Q4H PRN ORAL fever 12/28/18 19:15 01/27/19 19:14 Albuterol/ Ipratropium (Albuterol/ Ipratropium) 3 ml Q4H PRN HHN Shortness of Breath 12/28/18 19:35 01/02/19 19:34 12/29/18 04:01 Amikacin Protocol (Amikacin pharmacy to dose) 1 ea DAILY PRN MISC PER RX 12/28/18 20:30 01/27/19 20:29 Amikacin Sulfate 500 mg/Sodium Chloride 112 ml @ 224 mls/hr ONCE ONCE IV 12/29/18 11:00 12/29/18 11:29 Amikacin Sulfate 750 mg/Sodium Chloride 113 ml @ 226 mls/hr Q36H IV 12/30/18 23:00 01/06/19 22:59 Heparin Sodium (Porcine) (Heparin 5000 units/ml) 5,000 units EVERY 12 HOURS SUBQ 12/28/18 21:00 01/27/19 20:59 12/29/18 08:22 Iopamidol (Isovue-300 100ml) 100 ml NOW PRN INJ Radiology Procedure 12/28/18 18:45 Morphine Sulfate (Morphine Sulfate) 2 mg Q4H PRN IVP Severe Pain (Pain Scale 7-10) 12/28/18 19:15 01/04/19 19:14 12/28/18 23:16 Norepinephrine Bitartrate 4 mg/ Dextrose 254 ml @ 0 mls/hr Q24H IV 12/28/18 20:30 01/27/19 20:29 12/29/18 04:47 Ondansetron HCl (Zofran) 4 mg Q6H PRN IVP Nausea & Vomiting 12/28/18 19:15 01/27/19 19:14 Pantoprazole (Protonix) 40 mg DAILY IVP 12/29/18 09:00 01/28/19 08:59 12/29/18 08:22 Polyethylene Glycol (Miralax) 17 gm DAILYPRN PRN ORAL Constipation 12/28/18 19:15 01/27/19 19:14 Sodium Chloride 1,000 ml @ 100 mls/hr Q10H IVLG 12/28/18 20:30 01/27/19 20:29 12/29/18 06:13 Vancomycin HCl (Vanco rx to dose) 1 ea DAILY PRN MISC MD 12/28/18 20:30 01/27/19 20:29 Assessment/Plan Problem List: (1) Septic shock ICD Codes: A41.9 - Sepsis, unspecified organism; R65.21 - Severe sepsis with septic shock SNOMED: 90313116 (2) ATN (acute tubular necrosis) ICD Codes: N17.0 - Acute kidney failure with tubular necrosis SNOMED: 79941192 (3) Hyperbilirubinemia ICD Codes: E80.6 - Other disorders of bilirubin metabolism SNOMED: 50645530 (4) Cholangiocarcinoma ICD Codes: C22.1 - Intrahepatic bile duct carcinoma SNOMED: 454567601 (5) Symptomatic anemia ICD Codes: D64.9 - Anemia, unspecified SNOMED: 745679297 Respiratory: monitor respiratory rate, adjust FIO2 Cardiac: continue to monitor HR/BP Renal: F/U I&O, keep IV fluid, check electrolytes Infectious Disease: check cultures Gastrointestinal: hold feedings Endocrine: monitor blood sugar, continue sliding scale insulin Hematologic: transfuse if hgb<8.5 Neurologic: PRN Ativan, PRN Morphine, keep patient comfortable Disposition: keep in ICU Discussed with: nurses, consultants, adult protective caseworker David Ibrahim MD Dec 29, 2018 09:44
--- NOTE | 2018-12-29 10:20 | NUR ---
NURSE NOTES: VSS. Patient remains moaning, breathing agonal but denies pain at this time. Repositioned in bed. No new orders at this time. Will continue to monitor patient.
--- NOTE | 2018-12-29 10:29 | NUR ---
Regarding NM Hepatobiliary (HIDA) scan. Per RN Ani, pt cannot tolerate scan at this time. Will follow up
[2018-12-29] MEDS ORDERED: Amikacin 500 MG in NS 110 ML IV ONE (11:00)
--- NOTE | 2018-12-29 11:18 | Diagnostic Imaging Report ---
Indication: Shortness of breath Technique: One view of the chest Comparison: 12/28/2018 Findings: There is suggestion of increasing pleural fluid and parenchymal opacity at the left lung base. There is also generalized increased interstitial prominence. Right perihilar atelectasis or scarring is unchanged. The heart size is normal Impression: Increasing left pleural fluid and basilar parenchymal opacity, over one day Increasing generalized interstitial prominence, may reflect congestion
--- NOTE | 2018-12-29 11:37 | GI Initial Consult Note ---
History of Present Illness General Date patient seen: Dec 29, 2018 Time patient seen: 11:28 Reason for Hospitalization: General Complaint Referring physician: KATHYA BRANTLEY Reason for Consultation: abdominal pain Present Illness HPI This is a 73-year-old patient who presented from Dr. Alcantara office with increased abdominal pain. 911 was contacted and the patient was brought to the emergency room due to the patient's altered mental status and shortness of breath. The patient has a history of cholangiocarcinoma, repeat currently being considered for chemotherapy or radiation. GI consulted for reported abdominal pain and elevated LFTs. ROS is limited, patient seen in ICU unable to obtain any history at this time. All information obtained from medical record. An abdominal pelvic CT was performed, noted with cholelithiasis with gallbladder wall distention and pericholecystic fluid suspicious for acute cholecystitis. In addition noted with nonspecific gastric distention. No biliary ductal dilation noted. Labs reviewed; hemoglobin of 11.6, AST of 484, ALT of 139, alkaline phosphatase of 299, total bilirubin of 6.1, troponin level of 0.124. Unknown history of endoscopic colonoscopy at this time. , Allergies: Coded Allergies: No Known Allergies (Unverified , 12/28/18) Patient History Limited by: medical condition History Provided By: Medical Record PMH Narrative Limited by: medical condition Past Medical History: see triage record Pertinent Family History: none Now: No Reviewed Nursing Documentation: PMH: Agreed; PSxH: Agreed Nursing Documentation-PMH Past Medical History: No History, Except For Hx Asthma: Yes Hx Cancer: Yes - Colon, Breast Social History: Denies: smoking, alcohol use, drug use, other Review of Systems All Other Systems: limited Physical Exam Vital Signs Date Time Temp Pulse Resp B/P (MAP) Pulse Ox O2 Delivery O2 Flow Rate FiO2 12/28/18 16:43 98 16 66/50 100 Room Air 12/28/18 17:15 15.0 95 12/28/18 17:15 97.8 Sp02 EP Interpretation: reviewed, normal Labs Laboratory Tests Test 12/28/18 17:00 12/28/18 18:45 12/28/18 19:30 12/28/18 21:00 White Blood Count 14.9 K/UL (4.8-10.8) H Red Blood Count 4.54 M/UL (4.20-5.40) Hemoglobin 13.6 G/DL (12.0-16.0) Hematocrit 40.9 % (37.0-47.0) Mean Corpuscular Volume 90 FL (80-99) Mean Corpuscular Hemoglobin 30.0 PG (27.0-31.0) Mean Corpuscular Hemoglobin Concent 33.4 G/DL (32.0-36.0) Red Cell Distribution Width 16.0 % (11.6-14.8) H Platelet Count 232 K/UL (150-450) Mean Platelet Volume 6.2 FL (6.5-10.1) L Neutrophils (%) (Auto) % (45.0-75.0) Lymphocytes (%) (Auto) % (20.0-45.0) Monocytes (%) (Auto) % (1.0-10.0) Eosinophils (%) (Auto) % (0.0-3.0) Basophils (%) (Auto) % (0.0-2.0) Differential Total Cells Counted 100 Neutrophils % (Manual) 83 % (45-75) H Lymphocytes % (Manual) 8 % (20-45) L Monocytes % (Manual) 6 % (1-10) Eosinophils % (Manual) 0 % (0-3) Basophils % (Manual) 0 % (0-2) Band Neutrophils 3 % (0-8) Platelet Estimate Adequate Platelet Morphology Normal Anisocytosis 1+ Arterial Blood pH 7.424 (7.350-7.450) Arterial Blood Partial Pressure CO2 19.5 mmHg (35.0-45.0) *L Arterial Blood Partial Pressure O2 78.8 mmHg (75.0-100.0) Arterial Blood HCO3 12.5 mmol/L (22.0-26.0) *L Arterial Blood Oxygen Saturation 94.4 % (95-100) L Arterial Blood Base Excess -9.7 (-2-2) *L Dk Test Positive Urine Color Brown Urine Appearance Cloudy Urine pH 6.5 (4.5-8.0) Urine Specific [place] 1.020 (1.005-1.035) Urine Protein 3+ (NEGATIVE) H Urine Glucose (UA) Negative (NEGATIVE) Urine Ketones 2+ (NEGATIVE) H Urine Blood 2+ (NEGATIVE) H Urine Nitrite Negative (NEGATIVE) Urine Bilirubin 3+ (NEGATIVE) H Urine Ictotest Positive (NEGATIVE) Urine Urobilinogen 4 MG/DL (0.0-1.0) H Urine Leukocyte Esterase Negative (NEGATIVE) Urine RBC 2-4 /HPF (0 - 2) H Urine WBC 0 /HPF (0 - 2) Urine Squamous Epithelial Cells Occasional /LPF Urine Amorphous Sediment Moderate /LPF (NONE) H Urine Bacteria Few /HPF (NONE) Sodium Level 130 MMOL/L (136-145) L Potassium Level 5.3 MMOL/L (3.5-5.1) H Chloride Level 97 MMOL/L (98-107) L Carbon Dioxide Level 17 MMOL/L (21-32) L Anion Gap 16 mmol/L (5-15) H Blood Urea Nitrogen 22 mg/dL (7-18) H Creatinine 1.0 MG/DL (0.55-1.30) Estimat Glomerular Filtration Rate mL/min (>60) Glucose Level 75 MG/DL (74-106) Uric Acid 6.3 MG/DL (2.6-7.2) Calcium Level 7.4 MG/DL (8.5-10.1) L Total Bilirubin 5.9 MG/DL (0.2-1.0) H Direct Bilirubin 5.0 MG/DL (0.0-0.3) H Aspartate Amino Transf (AST/SGOT) 240 U/L (15-37) H Alanine Aminotransferase (ALT/SGPT) 78 U/L (12-78) Alkaline Phosphatase 280 U/L (46-116) H Total Creatine Kinase 196 U/L (26-308) Creatine Kinase MB 2.3 NG/ML (0.0-3.6) Creatine Kinase MB Relative Index 1.2 Troponin I 0.124 ng/mL (0.000-0.056) Total Protein 5.2 G/DL (6.4-8.2) L Albumin 1.1 G/DL (3.4-5.0) L Globulin 4.1 g/dL Albumin/Globulin Ratio 0.3 (1.0-2.7) L Test 12/29/18 00:12 12/29/18 04:00 12/29/18 07:50 Urine Color Zarina Urine Appearance Cloudy Urine pH 5 (4.5-8.0) Urine Specific [place] 1.020 (1.005-1.035) Urine Protein 3+ (NEGATIVE) H Urine Glucose (UA) Negative (NEGATIVE) Urine Ketones 1+ (NEGATIVE) H Urine Blood 2+ (NEGATIVE) H Urine Nitrite Negative (NEGATIVE) Urine Bilirubin 3+ (NEGATIVE) H Urine Ictotest Positive (NEGATIVE) Urine Urobilinogen 4 MG/DL (0.0-1.0) H Urine Leukocyte Esterase 1+ (NEGATIVE) H Urine RBC 2-4 /HPF (0 - 2) H Urine WBC 2-4 /HPF (0 - 2) Urine Squamous Epithelial Cells Many /LPF (NONE/OCC) H Urine Calcium Oxalate Crystals Few /LPF (NONE) Urine Amorphous Sediment Many /LPF (NONE) H Urine Bacteria Many /HPF (NONE) H Urine Eosinophils None seen (NONE SEEN) Urine Random Creatinine Pending Urine Random Microalbumin Pending Urine Random Sodium < 20 mmol/L (20-110) L Urine Creatinine 211.9 MG/DL (30.0-125.0) H Urine Microalbumin/Creatinine Ratio Pending Urine Potassium Timed 63 mmol/L (12-62) H White Blood Count 14.8 K/UL (4.8-10.8) H Red Blood Count 3.81 M/UL (4.20-5.40) L Hemoglobin 11.6 G/DL (12.0-16.0) L Hematocrit 34.7 % (37.0-47.0) L Mean Corpuscular Volume 91 FL (80-99) Mean Corpuscular Hemoglobin 30.4 PG (27.0-31.0) Mean Corpuscular Hemoglobin Concent 33.3 G/DL (32.0-36.0) Red Cell Distribution Width 16.4 % (11.6-14.8) H Platelet Count 231 K/UL (150-450) Mean Platelet Volume 6.8 FL (6.5-10.1) Neutrophils (%) (Auto) % (45.0-75.0) Lymphocytes (%) (Auto) % (20.0-45.0) Monocytes (%) (Auto) % (1.0-10.0) Eosinophils (%) (Auto) % (0.0-3.0) Basophils (%) (Auto) % (0.0-2.0) Sodium Level 128 MMOL/L (136-145) L Potassium Level 5.0 MMOL/L (3.5-5.1) Chloride Level 97 MMOL/L (98-107) L Carbon Dioxide Level 15 MMOL/L (21-32) L Anion Gap 16 mmol/L (5-15) H Blood Urea Nitrogen 23 mg/dL (7-18) H Creatinine 1.0 MG/DL (0.55-1.30) Estimat Glomerular Filtration Rate mL/min (>60) Glucose Level 114 MG/DL (74-106) H Calcium Level 7.1 MG/DL (8.5-10.1) L Total Bilirubin 6.3 MG/DL (0.2-1.0) H Direct Bilirubin 5.0 MG/DL (0.0-0.3) H Aspartate Amino Transf (AST/SGOT) 484 U/L (15-37) H Alanine Aminotransferase (ALT/SGPT) 139 U/L (12-78) H Alkaline Phosphatase 299 U/L (46-116) H Total Protein 5.2 G/DL (6.4-8.2) L Albumin 1.2 G/DL (3.4-5.0) L Globulin 4.0 g/dL Albumin/Globulin Ratio 0.3 (1.0-2.7) L Arterial Blood pH 7.410 (7.350-7.450) Arterial Blood Partial Pressure CO2 17.0 mmHg (35.0-45.0) *L Arterial Blood Partial Pressure O2 60.1 mmHg (75.0-100.0) L Arterial Blood HCO3 10.5 mmol/L (22.0-26.0) *L Arterial Blood Oxygen Saturation 87.3 % (95-100) *L Arterial Blood Base Excess -11.6 (-2-2) *L Dk Test Positive General Appearance: no apparent distress Head: normocephalic EENT: PERRL/EOMI, normal ENT inspection Neck: supple Respiratory: normal breath sounds, no respiratory distress, other - Simple mask Cardiovascular: normal rate Gastrointestinal: normal inspection, non tender, soft, normal bowel sounds, non -distended Rectal: deferred Genitourinary: no CVA tenderness Neurologic: normal inspection, responsive Skin: normal inspection, normal color, no rash, warm/dry, palpation normal, well hydrated Lymphatic: normal inspection, no adenopathy Current Medications Current Medications Medications (Trade) Dose Ordered Sig/Venus Route PRN Reason Start Time Stop Time Status Last Admin Dose Admin Acetaminophen (Tylenol) 650 mg Q4H PRN ORAL fever 12/28/18 19:15 01/27/19 19:14 Albuterol/ Ipratropium (Albuterol/ Ipratropium) 3 ml Q4H PRN HHN Shortness of Breath 12/28/18 19:35 01/02/19 19:34 12/29/18 04:01 Ertapenem 1 gm/ Sodium Chloride 55 ml @ 110 mls/hr Q24H IV 12/29/18 02:00 01/03/19 01:59 12/29/18 02:11 Heparin Sodium (Porcine) (Heparin 5000 units/ml) 5,000 units EVERY 12 HOURS SUBQ 12/28/18 21:00 01/27/19 20:59 12/29/18 08:22 Iopamidol (Isovue-300 100ml) 100 ml NOW PRN INJ Radiology Procedure 12/28/18 18:45 Morphine Sulfate (Morphine Sulfate) 2 mg Q4H PRN IVP Severe Pain (Pain Scale 7-10) 12/28/18 19:15 01/04/19 19:14 12/29/18 09:42 Norepinephrine Bitartrate 4 mg/ Dextrose 254 ml @ 0 mls/hr Q24H IV 12/28/18 20:30 01/27/19 20:29 12/29/18 10:15 Ondansetron HCl (Zofran) 4 mg Q6H PRN IVP Nausea & Vomiting 12/28/18 19:15 01/27/19 19:14 Pantoprazole (Protonix) 40 mg DAILY IVP 12/29/18 09:00 01/28/19 08:59 12/29/18 08:22 Polyethylene Glycol (Miralax) 17 gm DAILYPRN PRN ORAL Constipation 12/28/18 19:15 01/27/19 19:14 Sodium Chloride 1,000 ml @ 100 mls/hr Q10H IVLG 12/28/18 20:30 01/27/19 20:29 12/29/18 06:13 Vancomycin HCl (Vanco rx to dose) 1 ea DAILY PRN MISC 12/28/18 20:30 01/27/19 20:29 Vancomycin HCl 1 gm/Dextrose 275 ml @ 183.708 mls/hr Q24H IVPB 12/30/18 00:00 01/04/19 00:00 GI: Plan Problems: (1) Anemia (2) Acute cholecystitis (3) Troponin level elevated (4) Cholangiocarcinoma Plan Abdominal CT reviewed; noted with possible acute cholecystitis, gastric distention Obtain surgical consultation for acute cholecystitis Maintain n.p.o. plus IV fluids HIDA scan when respiratory and hemodynamically stable Abdominal ultrasound anemia work up OB stool r/o GI bleed monitor H&H, prn transfusions bowel regime ppi fu labs, LFTs Defer any GI procedures until stable Discussed with Dr. Maki. Thank you for this patient referral, we will follow. The patient was seen and examined at bedside and all new and available data was reviewed in the patients chart. I agree with the above findings, impression and plan. (Patient seen earlier today. Signature stamp does not reflect patient encounter time.). - MD Isabelle UmañaLittle [facility] CenterMoe GRACIA Dec 29, 2018 11:36
--- NOTE | 2018-12-29 12:00 | NUR ---
NURSE NOTES: VSS. Turned and repositioned. No new orders. Will continue plan of care.
--- NOTE | 2018-12-29 12:26 | NUR ---
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 MASK 15.0L O2 FiO2 95 WBC 14.9, RBC 3.81, Hgb 11.6, Hct 34.7, Na 130, K 5.3, BUN 22 CXR Impression: Obscured left hemidiaphragm; this is demonstrated on subsequent CT scan to be due to a left pleural effusion. Right perihilar atelectasis. IS:NS x1L IV ZOFRAN 4mg IVP MORPHINE 2mg IVP NOREPINEPHRINE 254ml IV HEPARIN SUBQ ADMITTED TO ICU DC PLAN: RETURN HOME
--- NOTE | 2018-12-29 13:25 | History & Physical ---
History and Physical History & Physicial Dictated [id number] Luther Anderson MD Dec 29, 2018 13:25
--- NOTE | 2018-12-29 13:29 | Consultation ---
History of Present Illness General Date patient seen: Dec 29, 2018 Reason for Hospitalization: General Complaint Present Illness HPI This is a very pleasant 73 year old female with known history of cholangiocarcinoma under the care of Dr. Alcantara who was acutely worsening and with abdominal pain and is currently admitted to ICU for care. On admission noted to have RUQ abdominal pain and abnormal labs. CT with possible cholecystitis. Surgery called to evaluate. per report, patient recently admitted at [facility] and discharged. has internal external biliary drain and biliary stent. when seen at bedside patient with jaundice and tender in RUQ. no nausea or emesis. labs noted. micro noted. US pending. tachycardic. leukocytosis. on pressors Allergies: Coded Allergies: No Known Allergies (Unverified , 12/28/18) Patient History History Provided By: Patient, Medical Record, PMD Healthcare decision maker Parag Quick (SON) Resuscitation status Advanced Directive on File No Past Medical/Surgical History Past Medical/Surgical History: (1) Acute cholecystitis (2) Anemia (3) Troponin level elevated (4) Symptomatic anemia (5) Encounter for generalized patient complaints (6) Cholangiocarcinoma (7) Septic shock (8) ATN (acute tubular necrosis) (9) Hyperbilirubinemia Review of Systems Review of Symptoms General ROS: no weight loss or fever Psychological ROS: no depression or mood changes, no memory loss Ophthalmic ROS: no visual changes or eye irritation ENT ROS: no nasal congestion, hearing loss, dizziness Allergy and Immunology ROS: no allergic symptoms or urticaria Hematological and Lymphatic ROS: no swollen glands, unusual bleeding or bruising Endocrine ROS: no polyuria, polydipsia, weight changes, temperature intolerance Respiratory ROS: no cough, shortness of breath, or wheezing Cardiovascular ROS: no chest pain or dyspnea on exertion Gastrointestinal ROS: abdominal pain, no bright red blood in stool. Musculoskeletal ROS: no myalgias or arthralgias Neurological ROS: no TIA or stroke symptoms Dermatological ROS: no new or changing skin lesions, rashes or pruritis Physical Exam Physical Exam General appearance: alert, cooperative, Head: Normocephalic, without obvious abnormality, atraumatic Eyes: conjunctivae/corneas clear. PERRL, EOM's intact. Fundi benign Throat: Lips, mucosa, and tongue normal. Teeth and gums normal Neck: supple, symmetrical, trachea midline, no adenopathy, thyroid: not enlarged, symmetric, no tenderness/mass/nodules, no carotid bruit and no JVD Lungs: clear to auscultation bilaterally Heart: regular rate and rhythm, S1, S2 normal, no murmur, click, rub or gallop Abdomen: soft, tender. Bowel sounds normal.drain in place with leakage of bile around drain Extremities: extremities normal, atraumatic, no cyanosis or edema Pulses: 2+ and symmetric Skin: texture, turgor normal. No rashes or lesions jaundice Neurologic: Grossly normal Last 24 Hour Vital Signs Date Time Temp Pulse Resp B/P (MAP) Pulse Ox O2 Delivery O2 Flow Rate FiO2 12/29/18 13:17 Simple Mask 8.0 60 12/29/18 13:17 99 Simple Mask 8.0 60 12/29/18 12:30 98.6 103 21 87/61 (70) 93 12/29/18 12:00 104 12/29/18 12:00 103 25 84/56 (65) 93 12/29/18 11:30 104 27 108/74 (85) 94 12/29/18 11:00 103 24 96/61 (73) 95 12/29/18 10:30 102 24 93/65 (74) 95 12/29/18 10:15 90/62 12/29/18 10:00 105 26 90/61 (71) 98 12/29/18 09:30 104 26 92/62 (72) 98 12/29/18 09:00 108 26 90/64 (73) 96 12/29/18 08:30 103 26 85/63 (70) 95 12/29/18 08:00 Simple Mask 10.0 12/29/18 08:00 98.2 104 26 88/64 (72) 98 12/29/18 08:00 103 12/29/18 07:30 105 26 88/65 (73) 95 12/29/18 07:03 103 18 Simple Mask 8.0 60 12/29/18 07:03 Simple Mask 8.0 60 12/29/18 07:03 100 Simple Mask 8.0 60 12/29/18 07:00 102 22 84/62 (69) 95 12/29/18 06:45 103 24 83/61 (68) 95 12/29/18 06:30 103 24 90/63 (72) 95 4/10/19 06:15 102 22 99/61 (74) 94 12/29/18 06:00 102 24 89/56 (67) 96 12/29/18 06:00 83/61 12/29/18 05:45 102 23 90/50 (63) 97 12/29/18 05:42 102 22 88/57 (67) 96 12/29/18 05:31 102 23 87/59 (68) 95 12/29/18 05:30 101 23 77/62 (67) 96 12/29/18 05:00 77/39 12/29/18 05:00 102 22 87/56 (66) 96 12/29/18 04:47 93/55 12/29/18 04:30 104 25 93/55 (68) 90 12/29/18 04:12 102 31 97 Venturi Mask 10.0 35 12/29/18 04:00 106 12/29/18 04:00 Simple Mask 10.0 12/29/18 04:00 97.3 103 27 93/61 (72) 98 12/29/18 03:58 101 27 97 Venturi Mask 10.0 35 12/29/18 03:30 103 25 91/59 (70) 97 12/29/18 03:00 103 25 88/59 (69) 95 12/29/18 03:00 101/63 12/29/18 02:30 101 24 101/65 (77) 96 12/29/18 02:11 90/49 12/29/18 02:00 104 25 95/77 (83) 94 12/29/18 02:00 89/55 12/29/18 01:32 Venturi Mask 10.0 35 12/29/18 01:32 99 Venturi Mask 10.0 35 12/29/18 01:30 102 21 91/66 (74) 98 12/29/18 01:00 92/61 12/29/18 01:00 101 22 91/64 (73) 100 12/29/18 00:30 103 23 96/54 (68) 100 12/29/18 00:06 100/63 12/29/18 00:00 101 21 89/60 (70) 99 12/29/18 00:00 99/65 12/29/18 00:00 Simple Mask 8.0 12/28/18 23:45 98 23 95/70 (78) 100 12/28/18 23:30 93 22 92/66 (75) 100 12/28/18 23:21 95 12/28/18 23:19 Simple Mask 8.0 12/28/18 23:17 67/49 12/28/18 23:15 99 22 96/73 (81) 100 12/28/18 23:00 97.5 95 24 109/63 (78) 100 12/28/18 22:40 98/61 12/28/18 22:40 97.8 102 24 98/61 100 Simple Mask 15.0 95 12/28/18 22:40 97.8 102 24 98/61 100 Simple Mask 15.0 95 12/28/18 22:35 99/81 12/28/18 22:30 111/69 12/28/18 22:25 106/68 12/28/18 22:20 108/63 12/28/18 22:15 90/65 12/28/18 22:10 82/55 12/28/18 22:05 79/56 12/28/18 22:00 72/50 12/28/18 21:55 70/43 12/28/18 21:50 97.8 106 25 67/49 92 Simple Mask 15.0 95 12/28/18 21:50 67/49 12/28/18 20:00 97.8 103 24 88/56 92 Simple Mask 15.0 95 12/28/18 19:10 97.8 106 22 80/54 95 Simple Mask 15.0 95 12/28/18 17:15 97.8 111 28 69/50 95 Simple Mask 15.0 95 12/28/18 17:15 111 28 Simple Mask 15.0 95 12/28/18 16:43 98 16 66/50 100 Room Air Intake and Output 12/28/18 12/29/18 19:00 07:00 Intake Total 3860.50 ml Output Total 285 ml Balance 3575.50 ml Intake IV Total 3860.50 ml Output Urine Total 285 ml Laboratory Tests Test 12/28/18 17:00 12/28/18 18:45 12/28/18 19:30 12/28/18 21:00 White Blood Count 14.9 K/UL (4.8-10.8) H Red Blood Count 4.54 M/UL (4.20-5.40) Hemoglobin 13.6 G/DL (12.0-16.0) Hematocrit 40.9 % (37.0-47.0) Mean Corpuscular Volume 90 FL (80-99) Mean Corpuscular Hemoglobin 30.0 PG (27.0-31.0) Mean Corpuscular Hemoglobin Concent 33.4 G/DL (32.0-36.0) Red Cell Distribution Width 16.0 % (11.6-14.8) H Platelet Count 232 K/UL (150-450) Mean Platelet Volume 6.2 FL (6.5-10.1) L Neutrophils (%) (Auto) % (45.0-75.0) Lymphocytes (%) (Auto) % (20.0-45.0) Monocytes (%) (Auto) % (1.0-10.0) Eosinophils (%) (Auto) % (0.0-3.0) Basophils (%) (Auto) % (0.0-2.0) Differential Total Cells Counted 100 Neutrophils % (Manual) 83 % (45-75) H Lymphocytes % (Manual) 8 % (20-45) L Monocytes % (Manual) 6 % (1-10) Eosinophils % (Manual) 0 % (0-3) Basophils % (Manual) 0 % (0-2) Band Neutrophils 3 % (0-8) Platelet Estimate Adequate Platelet Morphology Normal Anisocytosis 1+ Arterial Blood pH 7.424 (7.350-7.450) Arterial Blood Partial Pressure CO2 19.5 mmHg (35.0-45.0) *L Arterial Blood Partial Pressure O2 78.8 mmHg (75.0-100.0) Arterial Blood HCO3 12.5 mmol/L (22.0-26.0) *L Arterial Blood Oxygen Saturation 94.4 % (95-100) L Arterial Blood Base Excess -9.7 (-2-2) *L Dk Test Positive Urine Color Brown Urine Appearance Cloudy Urine pH 6.5 (4.5-8.0) Urine Specific [place] 1.020 (1.005-1.035) Urine Protein 3+ (NEGATIVE) H Urine Glucose (UA) Negative (NEGATIVE) Urine Ketones 2+ (NEGATIVE) H Urine Blood 2+ (NEGATIVE) H Urine Nitrite Negative (NEGATIVE) Urine Bilirubin 3+ (NEGATIVE) H Urine Ictotest Positive (NEGATIVE) Urine Urobilinogen 4 MG/DL (0.0-1.0) H Urine Leukocyte Esterase Negative (NEGATIVE) Urine RBC 2-4 /HPF (0 - 2) H Urine WBC 0 /HPF (0 - 2) Urine Squamous Epithelial Cells Occasional /LPF Urine Amorphous Sediment Moderate /LPF (NONE) H Urine Bacteria Few /HPF (NONE) Sodium Level 130 MMOL/L (136-145) L Potassium Level 5.3 MMOL/L (3.5-5.1) H Chloride Level 97 MMOL/L (98-107) L Carbon Dioxide Level 17 MMOL/L (21-32) L Anion Gap 16 mmol/L (5-15) H Blood Urea Nitrogen 22 mg/dL (7-18) H Creatinine 1.0 MG/DL (0.55-1.30) Estimat Glomerular Filtration Rate mL/min (>60) Glucose Level 75 MG/DL (74-106) Uric Acid 6.3 MG/DL (2.6-7.2) Calcium Level 7.4 MG/DL (8.5-10.1) L Total Bilirubin 5.9 MG/DL (0.2-1.0) H Direct Bilirubin 5.0 MG/DL (0.0-0.3) H Aspartate Amino Transf (AST/SGOT) 240 U/L (15-37) H Alanine Aminotransferase (ALT/SGPT) 78 U/L (12-78) Alkaline Phosphatase 280 U/L (46-116) H Total Creatine Kinase 196 U/L (26-308) Creatine Kinase MB 2.3 NG/ML (0.0-3.6) Creatine Kinase MB Relative Index 1.2 Troponin I 0.124 ng/mL (0.000-0.056) Total Protein 5.2 G/DL (6.4-8.2) L Albumin 1.1 G/DL (3.4-5.0) L Globulin 4.1 g/dL Albumin/Globulin Ratio 0.3 (1.0-2.7) L Test 12/29/18 00:12 12/29/18 04:00 12/29/18 07:50 Urine Color Zarina Urine Appearance Cloudy Urine pH 5 (4.5-8.0) Urine Specific [place] 1.020 (1.005-1.035) Urine Protein 3+ (NEGATIVE) H Urine Glucose (UA) Negative (NEGATIVE) Urine Ketones 1+ (NEGATIVE) H Urine Blood 2+ (NEGATIVE) H Urine Nitrite Negative (NEGATIVE) Urine Bilirubin 3+ (NEGATIVE) H Urine Ictotest Positive (NEGATIVE) Urine Urobilinogen 4 MG/DL (0.0-1.0) H Urine Leukocyte Esterase 1+ (NEGATIVE) H Urine RBC 2-4 /HPF (0 - 2) H Urine WBC 2-4 /HPF (0 - 2) Urine Squamous Epithelial Cells Many /LPF (NONE/OCC) H Urine Calcium Oxalate Crystals Few /LPF (NONE) Urine Amorphous Sediment Many /LPF (NONE) H Urine Bacteria Many /HPF (NONE) H Urine Eosinophils None seen (NONE SEEN) Urine Random Creatinine Pending Urine Random Microalbumin Pending Urine Random Sodium < 20 mmol/L (20-110) L Urine Creatinine 211.9 MG/DL (30.0-125.0) H Urine Microalbumin/Creatinine Ratio Pending Urine Potassium Timed 63 mmol/L (12-62) H White Blood Count 14.8 K/UL (4.8-10.8) H Red Blood Count 3.81 M/UL (4.20-5.40) L Hemoglobin 11.6 G/DL (12.0-16.0) L Hematocrit 34.7 % (37.0-47.0) L Mean Corpuscular Volume 91 FL (80-99) Mean Corpuscular Hemoglobin 30.4 PG (27.0-31.0) Mean Corpuscular Hemoglobin Concent 33.3 G/DL (32.0-36.0) Red Cell Distribution Width 16.4 % (11.6-14.8) H Platelet Count 231 K/UL (150-450) Mean Platelet Volume 6.8 FL (6.5-10.1) Neutrophils (%) (Auto) % (45.0-75.0) Lymphocytes (%) (Auto) % (20.0-45.0) Monocytes (%) (Auto) % (1.0-10.0) Eosinophils (%) (Auto) % (0.0-3.0) Basophils (%) (Auto) % (0.0-2.0) Sodium Level 128 MMOL/L (136-145) L Potassium Level 5.0 MMOL/L (3.5-5.1) Chloride Level 97 MMOL/L (98-107) L Carbon Dioxide Level 15 MMOL/L (21-32) L Anion Gap 16 mmol/L (5-15) H Blood Urea Nitrogen 23 mg/dL (7-18) H Creatinine 1.0 MG/DL (0.55-1.30) Estimat Glomerular Filtration Rate mL/min (>60) Glucose Level 114 MG/DL (74-106) H Calcium Level 7.1 MG/DL (8.5-10.1) L Total Bilirubin 6.3 MG/DL (0.2-1.0) H Direct Bilirubin 5.0 MG/DL (0.0-0.3) H Aspartate Amino Transf (AST/SGOT) 484 U/L (15-37) H Alanine Aminotransferase (ALT/SGPT) 139 U/L (12-78) H Alkaline Phosphatase 299 U/L (46-116) H Total Protein 5.2 G/DL (6.4-8.2) L Albumin 1.2 G/DL (3.4-5.0) L Globulin 4.0 g/dL Albumin/Globulin Ratio 0.3 (1.0-2.7) L Arterial Blood pH 7.410 (7.350-7.450) Arterial Blood Partial Pressure CO2 17.0 mmHg (35.0-45.0) *L Arterial Blood Partial Pressure O2 60.1 mmHg (75.0-100.0) L Arterial Blood HCO3 10.5 mmol/L (22.0-26.0) *L Arterial Blood Oxygen Saturation 87.3 % (95-100) *L Arterial Blood Base Excess -11.6 (-2-2) *L Dk Test Positive Microbiology Date/Time Source Procedure Growth Status 12/28/18 19:30 Rectum Received Height (Feet): 5 Height (Inches): 2.00 Weight (Pounds): 137 Medications Current Medications Medications (Trade) Dose Ordered Sig/Venus Route PRN Reason Start Time Stop Time Status Last Admin Dose Admin Acetaminophen (Tylenol) 650 mg Q4H PRN ORAL fever 12/28/18 19:15 01/27/19 19:14 Albuterol/ Ipratropium (Albuterol/ Ipratropium) 3 ml Q4H PRN HHN Shortness of Breath 12/28/18 19:35 01/02/19 19:34 12/29/18 04:01 Ertapenem 1 gm/ Sodium Chloride 55 ml @ 110 mls/hr Q24H IV 12/29/18 02:00 01/03/19 01:59 12/29/18 02:11 Heparin Sodium (Porcine) (Heparin 5000 units/ml) 5,000 units EVERY 12 HOURS SUBQ 12/28/18 21:00 01/27/19 20:59 12/29/18 08:22 Iopamidol (Isovue-300 100ml) 100 ml NOW PRN INJ Radiology Procedure 12/28/18 18:45 Morphine Sulfate (Morphine Sulfate) 2 mg Q4H PRN IVP Severe Pain (Pain Scale 7-10) 12/28/18 19:15 01/04/19 19:14 12/29/18 09:42 Norepinephrine Bitartrate 4 mg/ Dextrose 254 ml @ 0 mls/hr Q24H IV 12/28/18 20:30 01/27/19 20:29 12/29/18 10:15 Ondansetron HCl (Zofran) 4 mg Q6H PRN IVP Nausea & Vomiting 12/28/18 19:15 01/27/19 19:14 Pantoprazole (Protonix) 40 mg DAILY IVP 12/29/18 09:00 01/28/19 08:59 12/29/18 08:22 Polyethylene Glycol (Miralax) 17 gm DAILYPRN PRN ORAL Constipation 12/28/18 19:15 01/27/19 19:14 Sodium Chloride 1,000 ml @ 100 mls/hr Q10H IVLG 12/28/18 20:30 01/27/19 20:29 12/29/18 06:13 Vancomycin HCl (Vanco rx to dose) 1 ea DAILY PRN MISC MD 12/28/18 20:30 01/27/19 20:29 Vancomycin HCl 1 gm/Dextrose 275 ml @ 183.708 mls/hr Q24H IVPB 12/30/18 00:00 01/04/19 00:00 Assessment/Plan Problem List: (1) Acute cholecystitis Assessment & Plan: leukocytosis, septic, CT and US noted. discussed with radiologist she is not a surgical candidate given history will attempt medical management but may need cholecystostomy tube IV Abx trend labs will discuss with multidisciplinary team thank you ICD Codes: K81.0 - Acute cholecystitis SNOMED: 95260651 (2) Cholangiocarcinoma Assessment & Plan: appreciate oncology input CT with Cholelithiasis. Edematous gallbladder wall with gallbladder wall distention and pericholecystic fluid are suspicious for acute cholecystitis. Correlate with clinical findings, consider hepatobiliary nuclear scan as clinically indicated Left-sided internal/external biliary drain and endobiliary stent noted. No biliary ductal dilatation Lymphadenopathy within the peripancreatic/periduodenal fat, and lesser sac likely related to stated clinical history of biliary neoplasm Free intraperitoneal fluid Other manifestations of anasarca, including diffuse edema of the subcutaneous fat, bilateral pleural effusions Evidence of prior vascular embolic procedure, presumably to the central hepatic arteries Colonic diverticulosis Liver cysts. Subcentimeter low-attenuation liver lesions, too small to characterize, most likely benign simple cysts or bile hamartomas Nonspecific hypertrophy of the left adrenal Gastric distention, nonspecific, could indicate recent fluid ingestion, gastric outlet obstruction or gastroparesis also possible Drake catheter. 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
--- NOTE | 2018-12-29 13:57 | Diagnostic Imaging Report ---
Indication: Abdominal pain, abnormal gallbladder on recent CT scan Technique: Mae-scale and duplex images of the upper abdomen were obtained Comparison: Reference made to CT scan dated 12/28/2018 Findings: Gallbladder demonstrates multiple gallstones as well as intraluminal sludge. Gallbladder wall is markedly thickened. There is questionably a discontinuity of the gallbladder wall near the neck which appears to then communicate with an adjacent fluid collection. There is also free intraperitoneal fluid demonstrated. Sonographic Collado's sign is positive. Common bile duct is difficult to measure, as it contains both a stent as well as a biliary drainage catheter. The biliary drainage catheter enters via the left lobe. No intrahepatic biliary ductal dilatation. Liver demonstrates normal echogenicity. A simple cyst is seen in the left lobe Portal vein and hepatic veins are patent. Pancreas is obscured by bowel gas. Spleen cannot be visualized. Left kidney measures 10.3 cm in length. Right kidney measures 11.2 cm length. Both kidneys demonstrate normal echogenicity. There is no hydronephrosis. No focal abnormality . Abdominal aorta is partially obscured by bowel gas, visualized portions are non-aneurysmal . The stomach is distended with food and fluid. There is a left pleural effusion Impression: Markedly abnormal appearing gallbladder, with gallstones, sludge, an irregular marked wall thickening as well as pericholecystic fluid. There is questionably a discontinuity in the gallbladder wall which may be communicating with an adjacent fluid collection. This is concerning for perforation. Biliary stent and internal/external drainage catheter in place. No definite biliary ductal dilatation Limited exam as described, with nonvisualization of the spleen pancreas, suboptimal visualization of the abdominal aorta and left hepatic lobe Incidental finding of left lobe liver cyst Findings discussed by phone with nurse practitioner Lorne Walton as well as Dr. Loera previously
--- NOTE | 2018-12-29 14:00 | NUR ---
NURSE NOTES: Patient turned and repositioned. VSS. No new orders at this time. Remains on levophed 14 mcg/min. Dr. Loera aware. Will continue plan of care.
--- NOTE | 2018-12-29 15:10 | NUR ---
RD ASSESSMENT & RECOMMENDATIONS SEE CARE ACTIVITY FOR COMPLETE ASSESSMENT DAILY ESTIMATED NEEDS: Needs based on CA/ 50kg abw 25-35 kcals/kg 3442-4712 total kcals 1-1.5 g protein/kg 50-75 g total protein 25-30 mL/kg 1193-5968 total fluid mLs NUTRITION DIAGNOSIS: Altered nutrition related lab values R/T cholangiocarcinoma, liver dysfunction, clinical condition as evidenced by elev T bili (6.3), elev LFTs, low Na (128), hypotensive, on pressors, critically low pCO2 (17.0*), critically low HCO3 (10.5*). CURRENT DIET:NPO PO DIET RECOMMENDATIONS: Diet initiation per MD ADDITIONAL RECOMMENDATIONS: * Calibrated bedscale wt * Monitor HD stability * Monitor NPO status, ability to feed -> acute cholecystitis, not HD stable * Monitor lytes, replete as needed
--- NOTE | 2018-12-29 16:00 | NUR ---
NURSE NOTES: Patient turned and repositioned. No new orders. Will continue plan of care.
--- NOTE | 2018-12-29 18:00 | NUR ---
NURSE NOTES: Turned and repositioned. Family at bedside. Updated on plan of care. No new orders at this time. Will continue plan of care.
[2018-12-29 18:50] LABS: PARTIAL THROMBOPLASTIN TIME 58 SEC (23-33)
[2018-12-29 18:53] LABS: INR > 10.0 (0.9-1.1)
--- NOTE | 2018-12-29 19:08 | NUR ---
HAND-OFF: Report given to COLLEEN Abarca using sbar. VSS. No distress noted.
--- NOTE | 2018-12-29 19:30 | NUR ---
NURSE NOTES:received pt appeared jaundice, awake and alert , appeared exhausted and fatigue, speaks Mosotho only, on 35% venti mask resp even and spont. Appeared with SOB on exertion . St low 100s on the monitor. Bp labile. On Levophed drip at 14mcg/min infusing to Rt femoral central line. site with drsg dry and intact. NS at 100ml/hr infusing as well. Drake to gravity with tea colored urine very minimal in amt. Mds are aware. relatives at bedside- updated with pts condition, verbalized underatanding. Will continue to monitor.
--- NOTE | 2018-12-29 20:53 | NUR ---
NURSE NOTES:morphine 2mg ivp given due to abdominal pain scale of 8 .extending to under breast.
--- NOTE | 2018-12-29 22:45 | History and Physical Report ---
DATE OF ADMISSION: 12/28/2018 CHIEF COMPLAINT: The patient is a 73-year-old female, presents with a chief complaint of respiratory failure. HISTORY OF PRESENT ILLNESS: The patient was seen by Dr. Gordo Alcantara on 12/28/2018. The patient was found to be "ill-appearing." EMS was called. The patient was transported to [facility]. The patient is a 73-year-old female, who is admitted with generalized weakness and respiratory distress. The patient has a history of metastatic cholangiocarcinoma. This was diagnosed in September of 2018. The patient underwent a biopsy on 10/28/2018, which confirmed cholangiocarcinoma versus pancreatic cancer. The patient was at her oncologist's office, Dr. Gordo Alcantara yesterday on 12/29/2018. The patient was found to be "ill-appearing." EMS was called. The patient was transported to [place] emergency room. The patient was found to be in respiratory distress. The patient is admitted for respiratory distress to rule out possible pneumonia versus metastatic disease to the lung. REVIEW OF SYSTEMS: Unable to assess secondary to the patient's mental status. PAST MEDICAL HISTORY: Significant for, 1. Metastatic cholangiocarcinoma diagnosed by 10/28/2018 biopsy. PAST SURGICAL HISTORY: MRCP, significant for ERCP on 10/28/2018. CURRENT MEDICATIONS: 1. Omeprazole 40 mg p.o. daily. 2. Zofran 4 mg p.o. q.4 hours p.r.n. 3. Mucinex 600 mg p.o. twice daily. 4. Lactulose 30 mL p.o. daily. 5. Metoclopramide 10 mg p.o. 3 times daily. ALLERGIES: No known drug allergies. SOCIAL HISTORY: The patient is . The patient denies tobacco or alcohol use. PHYSICAL EXAMINATION: VITAL SIGNS: Temperature 97.8, respirations 16, blood pressure 66/50, and pulse 98. GENERAL: The patient is a thin-appearing frail female, in no apparent distress. HEENT: Eyes, pupils are equal and responsive to light and accommodation. Extraocular movements are intact. NECK: Supple without lymphadenopathy. CHEST: Decreased breath sounds in the left lower lobe otherwise clear to auscultation without wheezes or rales. CARDIOVASCULAR: Regular rhythm and rate. S1 and S2 are normal without murmurs, rubs, or gallops. ABDOMEN: Soft, nontender, and nondistended. Positive bowel sounds. No evidence of hepatosplenomegaly. Currently, no rebound or guarding noted. EXTREMITIES: Negative for clubbing, cyanosis, or edema. RECTAL/GENITAL: Not performed. NEUROLOGIC: Cranial nerves II through XII are grossly intact without focal deficits. LABORATORY STUDIES: WBC 14.9, hemoglobin 13.6, hematocrit 40.9, and platelets 232,000. Sodium 130, potassium 5.3, chloride 97, CO2 17, BUN 22, creatinine 1.0,and glucose 75. A chest x-ray revealed blunting of the left hemidiaphragm consistent with pleural effusion. A CT of the chest was reported as edematous gallbladder wall with gallbladder distention and pericholecystic fluid suspicious for acute cholecystitis. ASSESSMENT: This is a 73-year-old female. 1. Acute cholecystitis. 2. Respiratory failure. 3. Left pleural effusion. 4. Metastatic cholangiocarcinoma. TREATMENT: 1. Acute cholecystitis. A General Surgery consultation has been obtained with Dr. Loera. We will follow recommendation of General Surgery. 2. Respiratory failure. The patient has been placed on a Ventimask. A Pulmonary consultation has been obtained with Dr. Davdi Ibrahim. We will follow recommendation of Pulmonary. 3. Left-sided pleural effusion. The patient may require paracentesis during this hospitalization. 4. Metastatic cholangiocarcinoma. An Oncology consultation has been obtained with Dr. Alcantara. Luther Anderson M.D. DR: SHAHID JOB#: [id number] CC:
--- NOTE | 2018-12-29 23:00 | NUR ---
NURSE NOTES:Partial bath and complete bed changed done. pt able to tolerate with slight difficulty in turning.
[2018-12-30] VITALS (33 sets, daily range): BP systolic 0–124; BP diastolic 0–71
[2018-12-30] MEDS ORDERED: Vancomycin 1gm/D5W 275ml IVPB SCH ×2
--- NOTE | 2018-12-30 | NUR ---
NURSE NOTES:Pt desat to 80s. increase 02 to 40% ventimask. 02 sat >92%. watch for any resp. distress.
[2018-12-30] MEDS: Morphine Sulfate 2mg/ml Inj(IV/IM USE ONLY) IVP PRN ×3 (01:34→12:06)
--- NOTE | 2018-12-30 01:34 | NUR ---
NURSE NOTES:Morphine 2mg 1vp was given due to c/o abdominal pain extending to left underbeast. scale of 8.
[2018-12-30] MEDS: Ertapenem 1 GM in NS 55 ML IV SCH (01:36)
--- NOTE | 2018-12-30 02:30 | NUR ---
NURSE NOTES:Seen sleeping well at this time. Bp still labile.
--- NOTE | 2018-12-30 04:30 | NUR ---
NURSE NOTES:Pt refused bath, Biliary drain cath site drsg was changed.
--- NOTE | 2018-12-30 06:00 | NUR ---
NURSE NOTES:On and off awake , no c/o any discomfort at this time.
--- NOTE | 2018-12-30 07:16 | NUR ---
HAND-OFF: Report given to lex MACIAS.
--- NOTE | 2018-12-30 07:30 | NUR ---
NURSE NOTES: received report from trinity MACIAS. pt resting in bed. Azeri speaking. pupils winston. awake and A/OX4. presents fatigued, jaundice, on 35% simple face mask. inspiratory rhonchi. SOB on exertion. abdomen tender, round, no bm, pt npo. biliary drainage bag LUQ, no drainage seen. On Levophed drip at 14mcg/min via Rt femoral TLC, NS @100ml/hr. site with drainage on dressing. Drake to gravity with tea colored urine,minimal amount. generalized edema, bilateral feet cold to touch, pulses weak. son at bedside- updated with pts condition, verbalized understanding. Will continue to monitor.
[2018-12-30] MEDS: Pantoprazole Inj IVP SCH (08:01)
--- NOTE | 2018-12-30 08:30 | NUR ---
NURSE NOTES: radiology here to do CXR
--- NOTE | 2018-12-30 08:43 | NUR ---
RADIOLOGY DEPT., CHEST X-RAY DONE.-P.DYE
--- NOTE | 2018-12-30 08:54 | NUR ---
Regarding NM Hepatobiliary (HIDA) Scan: Spoke with COLLEEN Owen, Pt remains unable to tolerate scan at this time. Will continue to follow up.
--- NOTE | 2018-12-30 09:06 | Diagnostic Imaging Report ---
Indication: Dyspnea Technique: One view of the chest Comparison: 12/29/2018 Findings: Less optimal inspiration currently. Left pleural effusion is again demonstrated. There is interim development of atelectasis and possibly some consolidation in the right midlung. There may be increasing interstitial congestion, although suspected this is an artifact of the less optimal inspiration. Upper abdominal drainage catheter, biliary stent, and metallic hepatic vascular embolization coils are again demonstrated Impression: Hypoventilatory exam Questionable increased interstitial congestion Increased right perihilar atelectasis and possibly some consolidation Persistent left pleural effusion
[2018-12-30] MEDS ORDERED: Lidocaine 1% Plain 30 ml INJ PRN (09:40)
[2018-12-30] MEDS ORDERED: Heparin1,000 units/500ml Premix(Conc:2 units/ml) IV PRN (09:45)
--- NOTE | 2018-12-30 10:00 | NUR ---
NURSE NOTES: md mckeon here to see pt. awaiting lab redraw for results.
--- NOTE | 2018-12-30 10:25 | Pulmonolgy Critical Care Note ---
Critical Care - Asmt/Plan Problems: (1) Septic shock (2) Acute cholecystitis (3) Symptomatic anemia (4) Cholangiocarcinoma (5) ATN (acute tubular necrosis) (6) Hyperbilirubinemia Respiratory: monitor respiratory rate, adjust FIO2, CXR Cardiac: continue pressors, continue to monitor HR/BP Renal: F/U I&O, check electrolytes Infectious Disease: check cultures Gastrointestinal: continue feedings/current rate Endocrine: monitor blood sugar, continue sliding scale insulin Hematologic: monitor H/H, transfuse if hgb<8.5 Neurologic: PRN Ativan, PRN Morphine, keep patient comfortable Prophylaxis: Protonix Time Spent (Minutes): 40 Notes Reviewed: cold storage supervisor, cardio, renal Discussed with: nurses, consultants, pillowcase cleanerstaffing manager - Objective Last 24 Hour Vital Signs Date Time Temp Pulse Resp B/P (MAP) Pulse Ox O2 Delivery O2 Flow Rate FiO2 12/30/18 08:30 18 89/60 (70) 96 12/30/18 08:01 80/53 12/30/18 08:00 Simple Mask 10.0 12/30/18 08:00 97.8 97 16 93/55 (68) 89 12/30/18 07:30 115 21 81/52 (62) 77 12/30/18 07:00 96 17 69/45 (53) 89 12/30/18 06:42 96 19 Venturi Mask 12.0 40 12/30/18 06:42 Venturi Mask 12.0 40 12/30/18 06:42 90 Venturi Mask 12.0 40 12/30/18 06:30 115 17 100/53 (69) 94 12/30/18 06:00 114 16 92/53 (66) 94 12/30/18 05:30 117 18 84/53 (63) 94 12/30/18 05:00 91/60 12/30/18 05:00 116 18 90/60 (70) 94 12/30/18 04:30 117 18 83/57 (66) 94 12/30/18 04:00 110 12/30/18 04:00 100/60 12/30/18 04:00 Simple Mask 10.0 12/30/18 04:00 97.6 114 18 108/59 (75) 94 12/30/18 03:30 118 15 103/59 (74) 91 12/30/18 03:00 117 17 110/70 (83) 91 12/30/18 03:00 95/55 12/30/18 02:44 85/54 12/30/18 02:30 117 17 124/71 (88) 91 12/30/18 02:00 117 17 90/53 (65) 94 12/30/18 02:00 90/53 12/30/18 01:30 99 21 99/67 (78) 94 12/30/18 01:00 100 21 94/58 (70) 94 12/30/18 01:00 94/56 12/30/18 00:30 100 20 95/63 (74) 92 12/30/18 00:00 100 12/30/18 00:00 98.4 100 20 89/59 (69) 92 12/30/18 00:00 100/60 12/30/18 00:00 Simple Mask 10.0 12/29/18 23:30 100 20 90/55 (67) 92 12/29/18 23:00 89/58 12/29/18 23:00 100 20 89/58 (68) 92 12/29/18 22:30 101 27 109/92 (98) 93 12/29/18 22:00 101 22 96/63 (74) 93 12/29/18 22:00 96/63 12/29/18 21:30 100 23 77/43 (54) 93 12/29/18 21:00 91/66 12/29/18 21:00 99 23 91/66 (74) 93 12/29/18 20:49 94/60 12/29/18 20:30 102 26 92/63 (73) 93 12/29/18 20:00 98.0 102 22 114/55 (74) 93 12/29/18 20:00 102 12/29/18 20:00 Simple Mask 10.0 12/29/18 19:33 93 Venturi Mask 6.0 35 12/29/18 19:33 Venturi Mask 8.0 35 12/29/18 19:33 102 19 Venturi Mask 6.0 35 12/29/18 19:00 103 22 104/68 (80) 94 12/29/18 18:25 102 22 106/71 (83) 94 12/29/18 18:00 101 22 99/71 (80) 94 12/29/18 17:30 99 23 90/58 (69) 93 12/29/18 17:15 93/58 12/29/18 17:00 105 22 100/64 (76) 93 12/29/18 16:30 102 22 103/66 (78) 93 12/29/18 16:00 98.5 102 22 99/65 (76) 93 12/29/18 16:00 Simple Mask 10.0 12/29/18 16:00 105 12/29/18 15:30 106 23 95/68 (77) 93 12/29/18 15:00 104 23 94/70 (78) 93 12/29/18 14:30 103 23 99/73 (82) 93 12/29/18 14:00 105 23 100/73 (82) 93 12/29/18 13:30 102 23 98/72 (81) 93 12/29/18 13:17 Simple Mask 8.0 60 12/29/18 13:17 99 Simple Mask 8.0 60 12/29/18 13:00 103 22 91/57 (68) 93 12/29/18 12:30 98.6 103 21 87/61 (70) 93 12/29/18 12:00 104 12/29/18 12:00 Simple Mask 10.0 12/29/18 12:00 103 25 84/56 (65) 93 12/29/18 11:30 104 27 108/74 (85) 94 12/29/18 11:00 103 24 96/61 (73) 95 12/29/18 10:30 102 24 93/65 (74) 95 Status: somnolent Condition: critical HEENT: atraumatic Neck: full ROM Heart: HR/BP stable, regular Abdomen: non-tender, feeding tube Extremities: edema Decubiti: location Micro: Microbiology Date/Time Source Procedure Growth Status 12/28/18 17:20 Blood Blood Culture - Preliminary NO GROWTH AFTER 24 HOURS Resulted 12/28/18 17:05 Blood Blood Culture - Preliminary NO GROWTH AFTER 24 HOURS Resulted 12/29/18 00:12 Sputum Gram Stain - Final Resulted 12/29/18 00:12 Sputum Sputum Culture - Preliminary NORMAL UPPER RESPIRATORY MARIA R AT 24 ... Resulted 12/29/18 00:12 Urine,Clean Catch Urine Culture - Preliminary NO GROWTH Resulted 12/28/18 19:30 Rectum Received Critical Care - Subjective ROS Limited/Unobtainable: Yes Condition: critical IV Access: PICC EKG Rhythm: Sinus Rhythm FI02: 40 Sputum Amount: None I&O: Intake and Output 12/29/18 12/30/18 19:00 07:00 Intake Total 1372.70 ml 1535.06 ml Output Total 81 ml 98 ml Balance 1291.70 ml 1437.06 ml Intake IV Total 1372.70 ml 1535.06 ml Output Urine Total 81 ml 68 ml Other 30 ml Labs: Laboratory Tests Test 12/29/18 18:00 12/30/18 09:15 Prothrombin Time > 100.0 SEC (9.30-11.50) H Prothromb Time International Ratio > 10.0 (0.9-1.1) *H Activated Partial Thromboplast Time 58 SEC (23-33) H Arterial Blood pH 7.322 (7.350-7.450) Arterial Blood Partial Pressure CO2 22.8 mmHg (35.0-45.0) *L Arterial Blood Partial Pressure O2 56.7 mmHg (75.0-100.0) L Arterial Blood HCO3 11.5 mmol/L (22.0-26.0) *L Arterial Blood Oxygen Saturation 83.8 % (95-100) *L Arterial Blood Base Excess -12.7 (-2-2) *L Dk Test Positive David Ibrahim MD Dec 30, 2018 10:25
--- NOTE | 2018-12-30 10:30 | NUR ---
Social Service Note MISTY met with patient's son Parag at bedside. 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 Son states they have went to multiple physician and hospitals and have been given the same prognosis. Son states Dr. Alcantara was a small hope into medical intervention and was at his office when patient's BP dropped and 911 was called. Son states patient has verbalized wanting to be at peace. Parag states he and patient's his father feel hospice and DNR/DNI are appropriate however his brother is still hoping for a miracle. Son ask if SW could speak with him once he visits this afternoon. SW provided emotional support. Parag will discuss with family as he continue to see patient decline. SW will continue to be available as needed. MISTY discussed with charged nurse and Dr. Ibrahim.
--- NOTE | 2018-12-30 10:43 | NUR ---
RESPIRATORY NOTE: Increased FiO2 to 50% 12L cool aerosol post ABG result. COLLEEN Owen notified. Awaiting for DR. Ibrahim's order. Will continue to monitor pt.
--- NOTE | 2018-12-30 10:59 | GI Progress Note ---
Assessment/Plan Problems: (1) Cholangiocarcinoma ICD Codes: C22.1 - Intrahepatic bile duct carcinoma SNOMED: 995106033 (2) Anemia ICD Codes: D64.9 - Anemia, unspecified SNOMED: 668540966 (3) Acute cholecystitis ICD Codes: K81.0 - Acute cholecystitis SNOMED: 45778445 (4) Symptomatic anemia ICD Codes: D64.9 - Anemia, unspecified SNOMED: 605595328 (5) Septic shock ICD Codes: A41.9 - Sepsis, unspecified organism; R65.21 - Severe sepsis with septic shock SNOMED: 06703697 (6) Hyperbilirubinemia ICD Codes: E80.6 - Other disorders of bilirubin metabolism SNOMED: 82864810 Status: not improved, unchanged Status Narrative Discussed with Dr. Maki. Assessment/Plan Abdominal CT reviewed; noted with possible acute cholecystitis, gastric distention Abdominal US reviewed; suggestive of GB perforation poor prognosis surgical note reviewed, patient not candidate for surgery. Possible cholecystotomy tube. Maintain n.p.o. plus IV fluids HIDA scan when respiratory and hemodynamically stable monitor H&H, prn transfusions bowel regime ppi fu labs, LFTs Defer any GI procedures The patient was seen and examined at bedside and all new and available data was reviewed in the patients chart. I agree with the above findings, impression and plan. (Patient seen earlier today. Signature stamp does not reflect patient encounter time.). - Prosper Maki MD Subjective Subjective limited Objective Last 24 Hour Vital Signs Date Time Temp Pulse Resp B/P (MAP) Pulse Ox O2 Delivery O2 Flow Rate FiO2 12/30/18 10:30 100 18 81/53 (62) 97 12/30/18 10:00 100 18 85/49 (61) 94 12/30/18 09:30 99 18 85/58 (67) 92 12/30/18 09:00 98 17 95/60 (72) 96 12/30/18 08:30 18 89/60 (70) 96 12/30/18 08:01 80/53 12/30/18 08:00 Simple Mask 10.0 12/30/18 08:00 98 12/30/18 08:00 97.8 97 16 93/55 (68) 89 12/30/18 07:30 115 21 81/52 (62) 77 12/30/18 07:00 96 17 69/45 (53) 89 12/30/18 06:42 96 19 Venturi Mask 12.0 40 12/30/18 06:42 Venturi Mask 12.0 40 12/30/18 06:42 90 Venturi Mask 12.0 40 12/30/18 06:30 115 17 100/53 (69) 94 12/30/18 06:00 114 16 92/53 (66) 94 12/30/18 05:30 117 18 84/53 (63) 94 12/30/18 05:00 91/60 12/30/18 05:00 116 18 90/60 (70) 94 12/30/18 04:30 117 18 83/57 (66) 94 12/30/18 04:00 110 12/30/18 04:00 100/60 12/30/18 04:00 Simple Mask 10.0 12/30/18 04:00 97.6 114 18 108/59 (75) 94 12/30/18 03:30 118 15 103/59 (74) 91 12/30/18 03:00 117 17 110/70 (83) 91 12/30/18 03:00 95/55 12/30/18 02:44 85/54 12/30/18 02:30 117 17 124/71 (88) 91 12/30/18 02:00 117 17 90/53 (65) 94 12/30/18 02:00 90/53 12/30/18 01:30 99 21 99/67 (78) 94 12/30/18 01:00 100 21 94/58 (70) 94 12/30/18 01:00 94/56 12/30/18 00:30 100 20 95/63 (74) 92 12/30/18 00:00 100 12/30/18 00:00 98.4 100 20 89/59 (69) 92 12/30/18 00:00 100/60 12/30/18 00:00 Simple Mask 10.0 12/29/18 23:30 100 20 90/55 (67) 92 12/29/18 23:00 89/58 12/29/18 23:00 100 20 89/58 (68) 92 12/29/18 22:30 101 27 109/92 (98) 93 12/29/18 22:00 101 22 96/63 (74) 93 12/29/18 22:00 96/63 12/29/18 21:30 100 23 77/43 (54) 93 12/29/18 21:00 91/66 12/29/18 21:00 99 23 91/66 (74) 93 12/29/18 20:49 94/60 12/29/18 20:30 102 26 92/63 (73) 93 12/29/18 20:00 98.0 102 22 114/55 (74) 93 12/29/18 20:00 102 12/29/18 20:00 Simple Mask 10.0 12/29/18 19:33 93 Venturi Mask 6.0 35 12/29/18 19:33 Venturi Mask 8.0 35 12/29/18 19:33 102 19 Venturi Mask 6.0 35 12/29/18 19:00 103 22 104/68 (80) 94 12/29/18 18:25 102 22 106/71 (83) 94 12/29/18 18:00 101 22 99/71 (80) 94 12/29/18 17:30 99 23 90/58 (69) 93 12/29/18 17:15 93/58 12/29/18 17:00 105 22 100/64 (76) 93 12/29/18 16:30 102 22 103/66 (78) 93 12/29/18 16:00 98.5 102 22 99/65 (76) 93 12/29/18 16:00 Simple Mask 10.0 12/29/18 16:00 105 12/29/18 15:30 106 23 95/68 (77) 93 12/29/18 15:00 104 23 94/70 (78) 93 12/29/18 14:30 103 23 99/73 (82) 93 12/29/18 14:00 105 23 100/73 (82) 93 12/29/18 13:30 102 23 98/72 (81) 93 12/29/18 13:17 Simple Mask 8.0 60 12/29/18 13:17 99 Simple Mask 8.0 60 12/29/18 13:00 103 22 91/57 (68) 93 12/29/18 12:30 98.6 103 21 87/61 (70) 93 12/29/18 12:00 104 12/29/18 12:00 Simple Mask 10.0 12/29/18 12:00 103 25 84/56 (65) 93 12/29/18 11:30 104 27 108/74 (85) 94 12/29/18 11:00 103 24 96/61 (73) 95 Intake and Output 12/29/18 12/30/18 19:00 07:00 Intake Total 1372.70 ml 1535.06 ml Output Total 81 ml 98 ml Balance 1291.70 ml 1437.06 ml Intake IV Total 1372.70 ml 1535.06 ml Output Urine Total 81 ml 68 ml Other 30 ml Laboratory Tests Test 12/29/18 18:00 12/30/18 09:15 Prothrombin Time > 100.0 SEC (9.30-11.50) H Prothromb Time International Ratio > 10.0 (0.9-1.1) *H Activated Partial Thromboplast Time 58 SEC (23-33) H Arterial Blood pH 7.322 (7.350-7.450) Arterial Blood Partial Pressure CO2 22.8 mmHg (35.0-45.0) *L Arterial Blood Partial Pressure O2 56.7 mmHg (75.0-100.0) L Arterial Blood HCO3 11.5 mmol/L (22.0-26.0) *L Arterial Blood Oxygen Saturation 83.8 % (95-100) *L Arterial Blood Base Excess -12.7 (-2-2) *L Dk Test Positive Height (Feet): 5 Height (Inches): 2.00 Weight (Pounds): 140 General Appearance: no apparent distress Cardiovascular: normal rate Respiratory/Chest: no respiratory distress Abdominal Exam: normal bowel sounds, non tender, soft Extremities: non-tender Yuki Walton NANOSYSTEMS ENGINEER Dec 30, 2018 10:59
[2018-12-30 11:03] LABS: HEMATOCRIT 23.3 % (37.0-47.0); HEMOGLOBIN 7.5 G/DL (12.0-16.0); MEAN CORPUSCULAR VOLUME 92 FL (80-99); PLATELET COUNT 100 K/UL (150-450); RED BLOOD COUNT 2.54 M/UL (4.20-5.40); RED CELL DISTRIBUTION WIDTH 16.9 % (11.6-14.8); WHITE BLOOD COUNT 13.6 K/UL (4.8-10.8)
--- NOTE | 2018-12-30 11:35 | NUR ---
HAND-OFF: Report given to katiuska. endorsed f/u lab regarding update lab orders. next pain medication due @1200 and levo change by 1220. extra bag in casesstt.
--- NOTE | 2018-12-30 11:50 | Consultation ---
History of Present Illness General Date patient seen: Dec 30, 2018 Chief Complaint: General Complaint Referring physician: KATHYA BRANTLEY Reason for Consultation: abdominal pain Present Illness HPI Ms. Quick is a 73 yo female with PMHx of cholangiocarcinoma S/P Biliary tube and stenting who was sent to the ED on 12/28/18 with SOB. The patient was in her oncologist office when she was noted to be ill appearing so she was sent to the ED. She rpeorts that she was having a few days of abdominal pain and cough. No Fevers. In the ED she was afebrile but had WBCs of 14. CXR showed pleural effusion and possible RML consolidations. She was placed on O2 mask and is now in the ICU and hypotensive on pressors. I spoke with her sons and they are likely going to make her DNR and maybe comfort care. ID consulted for Sepsis PMHx/PSHx Cholangiocarcinoma S/P Biliary tube and stenting SocHx No E/T FamHx Not contributory Allergies: Coded Allergies: No Known Allergies (Unverified , 12/28/18) Patient History Healthcare decision maker Parag Quick (SON) Resuscitation status Advanced Directive on File No Review of Systems ROS Narrative Patient obtunded Physical Exam Last 24 Hour Vital Signs Date Time Temp Pulse Resp B/P (MAP) Pulse Ox O2 Delivery O2 Flow Rate FiO2 12/30/18 10:30 100 18 81/53 (62) 97 12/30/18 10:00 100 18 85/49 (61) 94 12/30/18 09:30 99 18 85/58 (67) 92 12/30/18 09:00 98 17 95/60 (72) 96 12/30/18 08:30 18 89/60 (70) 96 12/30/18 08:01 80/53 12/30/18 08:00 Simple Mask 10.0 12/30/18 08:00 98 12/30/18 08:00 97.8 97 16 93/55 (68) 89 12/30/18 07:30 115 21 81/52 (62) 77 12/30/18 07:00 96 17 69/45 (53) 89 12/30/18 06:42 96 19 Venturi Mask 12.0 40 12/30/18 06:42 Venturi Mask 12.0 40 12/30/18 06:42 90 Venturi Mask 12.0 40 12/30/18 06:30 115 17 100/53 (69) 94 12/30/18 06:00 114 16 92/53 (66) 94 12/30/18 05:30 117 18 84/53 (63) 94 12/30/18 05:00 91/60 12/30/18 05:00 116 18 90/60 (70) 94 12/30/18 04:30 117 18 83/57 (66) 94 12/30/18 04:00 110 12/30/18 04:00 100/60 12/30/18 04:00 Simple Mask 10.0 12/30/18 04:00 97.6 114 18 108/59 (75) 94 12/30/18 03:30 118 15 103/59 (74) 91 12/30/18 03:00 117 17 110/70 (83) 91 12/30/18 03:00 95/55 12/30/18 02:44 85/54 12/30/18 02:30 117 17 124/71 (88) 91 12/30/18 02:00 117 17 90/53 (65) 94 12/30/18 02:00 90/53 12/30/18 01:30 99 21 99/67 (78) 94 12/30/18 01:00 100 21 94/58 (70) 94 12/30/18 01:00 94/56 12/30/18 00:30 100 20 95/63 (74) 92 12/30/18 00:00 100 12/30/18 00:00 98.4 100 20 89/59 (69) 92 12/30/18 00:00 100/60 12/30/18 00:00 Simple Mask 10.0 12/29/18 23:30 100 20 90/55 (67) 92 12/29/18 23:00 89/58 12/29/18 23:00 100 20 89/58 (68) 92 12/29/18 22:30 101 27 109/92 (98) 93 12/29/18 22:00 101 22 96/63 (74) 93 12/29/18 22:00 96/63 12/29/18 21:30 100 23 77/43 (54) 93 12/29/18 21:00 91/66 12/29/18 21:00 99 23 91/66 (74) 93 12/29/18 20:49 94/60 12/29/18 20:30 102 26 92/63 (73) 93 12/29/18 20:00 98.0 102 22 114/55 (74) 93 12/29/18 20:00 102 12/29/18 20:00 Simple Mask 10.0 12/29/18 19:33 93 Venturi Mask 6.0 35 12/29/18 19:33 Venturi Mask 8.0 35 12/29/18 19:33 102 19 Venturi Mask 6.0 35 12/29/18 19:00 103 22 104/68 (80) 94 12/29/18 18:25 102 22 106/71 (83) 94 12/29/18 18:00 101 22 99/71 (80) 94 12/29/18 17:30 99 23 90/58 (69) 93 12/29/18 17:15 93/58 12/29/18 17:00 105 22 100/64 (76) 93 12/29/18 16:30 102 22 103/66 (78) 93 12/29/18 16:00 98.5 102 22 99/65 (76) 93 12/29/18 16:00 Simple Mask 10.0 12/29/18 16:00 105 12/29/18 15:30 106 23 95/68 (77) 93 12/29/18 15:00 104 23 94/70 (78) 93 12/29/18 14:30 103 23 99/73 (82) 93 12/29/18 14:00 105 23 100/73 (82) 93 12/29/18 13:30 102 23 98/72 (81) 93 12/29/18 13:17 Simple Mask 8.0 60 12/29/18 13:17 99 Simple Mask 8.0 60 12/29/18 13:00 103 22 91/57 (68) 93 12/29/18 12:30 98.6 103 21 87/61 (70) 93 12/29/18 12:00 104 12/29/18 12:00 Simple Mask 10.0 12/29/18 12:00 103 25 84/56 (65) 93 Intake and Output 12/29/18 12/30/18 19:00 07:00 Intake Total 1372.70 ml 1535.06 ml Output Total 81 ml 98 ml Balance 1291.70 ml 1437.06 ml Intake IV Total 1372.70 ml 1535.06 ml Output Urine Total 81 ml 68 ml Other 30 ml Laboratory Tests Test 12/29/18 18:00 12/30/18 09:15 12/30/18 10:40 Prothrombin Time > 100.0 SEC (9.30-11.50) H Prothromb Time International Ratio > 10.0 (0.9-1.1) *H Activated Partial Thromboplast Time 58 SEC (23-33) H Arterial Blood pH 7.322 (7.350-7.450) Arterial Blood Partial Pressure CO2 22.8 mmHg (35.0-45.0) *L Arterial Blood Partial Pressure O2 56.7 mmHg (75.0-100.0) L Arterial Blood HCO3 11.5 mmol/L (22.0-26.0) *L Arterial Blood Oxygen Saturation 83.8 % (95-100) *L Arterial Blood Base Excess -12.7 (-2-2) *L Dk Test Positive White Blood Count 13.6 K/UL (4.8-10.8) H Red Blood Count 2.54 M/UL (4.20-5.40) L Hemoglobin 7.5 G/DL (12.0-16.0) #L Hematocrit 23.3 % (37.0-47.0) #L Mean Corpuscular Volume 92 FL (80-99) Mean Corpuscular Hemoglobin 29.7 PG (27.0-31.0) Mean Corpuscular Hemoglobin Concent 32.3 G/DL (32.0-36.0) Red Cell Distribution Width 16.9 % (11.6-14.8) H Platelet Count 100 K/UL (150-450) #L Mean Platelet Volume 7.9 FL (6.5-10.1) Neutrophils (%) (Auto) % (45.0-75.0) Lymphocytes (%) (Auto) % (20.0-45.0) Monocytes (%) (Auto) % (1.0-10.0) Eosinophils (%) (Auto) % (0.0-3.0) Basophils (%) (Auto) % (0.0-2.0) Differential Total Cells Counted 100 Neutrophils % (Manual) 93 % (45-75) H Lymphocytes % (Manual) 2 % (20-45) L Monocytes % (Manual) 4 % (1-10) Eosinophils % (Manual) 0 % (0-3) Basophils % (Manual) 0 % (0-2) Band Neutrophils 1 % (0-8) Nucleated Red Blood Cells 1 /100 WBC Platelet Estimate Decreased L Platelet Morphology Normal Spherocytes 1+ Reticulocyte Count Pending Height (Feet): 5 Height (Inches): 2.00 Weight (Pounds): 140 Medications Current Medications Medications (Trade) Dose Ordered Sig/Venus Route PRN Reason Start Time Stop Time Status Last Admin Dose Admin Acetaminophen (Tylenol) 650 mg Q4H PRN ORAL fever 12/28/18 19:15 01/27/19 19:14 Albuterol/ Ipratropium (Albuterol/ Ipratropium) 3 ml Q4H PRN HHN Shortness of Breath 12/28/18 19:35 01/02/19 19:34 12/29/18 04:01 Chlorhexidine Gluconate (Cecilia-Hex 2%) 1 applic DAILY@2000 TOPIC 12/30/18 20:00 01/29/19 19:59 Ertapenem 1 gm/ Sodium Chloride 55 ml @ 110 mls/hr Q24H IV 12/29/18 02:00 01/03/19 01:59 12/30/18 01:36 Iopamidol (Isovue-300 100ml) 100 ml NOW PRN INJ Radiology Procedure 12/28/18 18:45 Lidocaine HCl (Xylocaine 1% 30ml) 30 ml ONCE PRN INJ PICC 12/30/18 09:40 12/30/18 23:59 Morphine Sulfate (Morphine Sulfate) 2 mg Q4H PRN IVP Severe Pain (Pain Scale 7-10) 12/28/18 19:15 01/04/19 19:14 12/30/18 08:00 Norepinephrine Bitartrate 4 mg/ Dextrose 254 ml @ 0 mls/hr Q24H IV 12/28/18 20:30 01/27/19 20:29 12/30/18 08:01 Ondansetron HCl (Zofran) 4 mg Q6H PRN IVP Nausea & Vomiting 12/28/18 19:15 01/27/19 19:14 Pantoprazole (Protonix) 40 mg DAILY IVP 12/29/18 09:00 01/28/19 08:59 12/30/18 08:01 Polyethylene Glycol (Miralax) 17 gm DAILYPRN PRN ORAL Constipation 12/28/18 19:15 01/27/19 19:14 Sodium Chloride 1,000 ml @ 100 mls/hr Q10H IVLG 12/28/18 20:30 01/27/19 20:29 12/30/18 02:44 Vancomycin HCl (Vanco rx to dose) 1 ea DAILY PRN MISC 12/28/18 20:30 01/27/19 20:29 Vancomycin HCl 1 gm/Dextrose 275 ml @ 183.708 mls/hr Q24H IVPB 12/30/18 00:00 01/04/19 00:00 12/29/18 23:39 Objective Narrative Gen: Obtunded on O2 mask HEENT: NCAT, MMM, PERRL, No Oral lesion, no scleral icterus NECK: supple, No LAD, No JVD LUNGS: CTAB, No W/C, No Accessory muscle use CARDS: RRR, S1, S2, No M/R/G, ABD: Soft, ND, No R/G, + BS, Biliary drain : Deferred Ext: C/C/E, Pulses 2+ B/L (DP, Rad): NEURO: A/O x O, not following SKIN: Warm/dry, No rashes Assessment/Plan Assessment/Plan 73 yo female with PMHx of cholangiocarcinoma S/P Biliary tube and stenting who was sent to the ED on 12/28/18 with SOB. Sepsis CAP vs Biliary infection vs other CXR plerual effusion and possible RML PNA CT Abd/pel 12/28/18 - Acute cholecystitis, Biliary drian and stent, Blood Cx 12/28/18 - NGTD Urine Cx 12/28/18 - NGTD Sputum Cx 12/29/18 NF Cholangiocarcinoma S/P Biliary tube and stenting PLAN - Continue Ertapenem #2 and Vancomycin #1 pending Cx - S/P Amikacin x 1 12/29/18 - f/u B/Sp/U Cx - Get biliary nicole Cx - Monitor CBC and temps - Poor prognosis Thank you for this consult. We will continue to follow the patient during this hospitalization. Cesar Youssef MD Dec 30, 2018 11:50
--- NOTE | 2018-12-30 12:15 | NUR ---
NURSE NOTES: Morphine 2mg 1vp was given due to c/o pain scale of 8/10.
--- NOTE | 2018-12-30 12:30 | NUR ---
NURSE NOTES: received pt from Lexie, taking over patient ongoing now. Will carry on plan of care.
[2018-12-30 13:34] LABS: ALANINE AMINOTRANSFERASE 595 U/L (12-78); ALBUMIN 1.1 G/DL (3.4-5.0); ALBUMIN/GLOBULIN RATIO 0.3 (1.0-2.7); ALKALINE PHOSPHATASE 486 U/L (46-116); ANION GAP 15 mmol/L (5-15); ASPARTATE AMINO TRANSFERASE 2090 U/L (15-37); BILIRUBIN,TOTAL 7.9 MG/DL (0.2-1.0); BLOOD UREA NITROGEN 29 mg/dL (7-18); CALCIUM 6.9 MG/DL (8.5-10.1); CARBON DIOXIDE 16 MMOL/L (21-32); CHLORIDE 97 MMOL/L (98-107); CREATININE 1.1 MG/DL (0.55-1.30); FERRITIN 107 NG/ML (8-388); PHOSPHORUS 5.1 MG/DL (2.5-4.9); POTASSIUM 5.2 MMOL/L (3.5-5.1); SODIUM 128 MMOL/L (136-145)
[2018-12-30 13:35] LABS: BILIRUBIN,DIRECT 6.1 MG/DL (0.0-0.3)
[2018-12-30 13:58] LABS: PARTIAL THROMBOPLASTIN TIME 60 SEC (23-33)
[2018-12-30 14:06] LABS: INR > 10.0 (0.9-1.1)
--- NOTE | 2018-12-30 15:00 | NUR ---
NURSE NOTES: Family has decided to put patient on comfort care, and change code status to DNR/DNI. Dr. Ibrahim has spoken with family, family is aware of situation. Pain meds amount increased, will carry out plan.
[2018-12-30 15:18] LABS: % IRON SATURATION 123 % (15-50); IRON 114 ug/dL (50-175); TOTAL IRON BINDING CAPACITY 93 ug/dL (250-450)
[2018-12-30] MEDS ORDERED: Morphine Sulfate 2mg/ml Inj(IV/IM USE ONLY) IVP PRN (15:45)
[2018-12-30] MEDS ORDERED: Morphine Sulfate 4mg/ml Inj (IV USE ONLY) IVP PRN (15:45)
--- NOTE | 2018-12-30 15:55 | NUR ---
NURSE NOTES: Patient went bradycardic, then asystole. Family at bedside, aware of condition. Charge nurse has informed nursing supervisor vendor quality.
--- NOTE | 2018-12-30 16:22 | Surgery Progress Note ---
Surgery Progress Note Subjective Additional Comments in lots of pain. overall condition poor. jaundice. uncomfortable. family at bedside. Objective Last 24 Hour Vital Signs Date Time Temp Pulse Resp B/P (MAP) Pulse Ox O2 Delivery O2 Flow Rate FiO2 12/30/18 15:30 84 33 96/69 (78) 81 12/30/18 15:00 120 20 88/63 (71) 90 12/30/18 14:30 122 20 68/50 (56) 91 12/30/18 14:00 121 20 120/62 (81) 96 12/30/18 13:30 120 20 102/68 (79) 96 12/30/18 13:00 119 19 79/52 (61) 96 12/30/18 12:41 87/70 12/30/18 12:36 97.8 12/30/18 12:30 97.7 120 19 88/54 (65) 94 12/30/18 12:00 120 12/30/18 12:00 104 29 87/54 (65) 96 12/30/18 11:30 105 29 99/70 (80) 12/30/18 11:00 101 21 86/54 (65) 94 12/30/18 10:30 100 18 81/53 (62) 97 12/30/18 10:00 100 18 85/49 (61) 94 12/30/18 09:30 99 18 85/58 (67) 92 12/30/18 09:00 98 17 95/60 (72) 96 12/30/18 08:30 18 89/60 (70) 96 12/30/18 08:01 80/53 12/30/18 08:00 Simple Mask 10.0 12/30/18 08:00 98 12/30/18 08:00 97.8 97 16 93/55 (68) 89 12/30/18 07:30 115 21 81/52 (62) 77 12/30/18 07:00 96 17 69/45 (53) 89 12/30/18 06:42 96 19 Venturi Mask 12.0 40 12/30/18 06:42 Venturi Mask 12.0 40 12/30/18 06:42 90 Venturi Mask 12.0 40 12/30/18 06:30 115 17 100/53 (69) 94 12/30/18 06:00 114 16 92/53 (66) 94 12/30/18 05:30 117 18 84/53 (63) 94 12/30/18 05:00 91/60 12/30/18 05:00 116 18 90/60 (70) 94 12/30/18 04:30 117 18 83/57 (66) 94 12/30/18 04:00 110 12/30/18 04:00 100/60 12/30/18 04:00 Simple Mask 10.0 12/30/18 04:00 97.6 114 18 108/59 (75) 94 12/30/18 03:30 118 15 103/59 (74) 91 12/30/18 03:00 117 17 110/70 (83) 91 12/30/18 03:00 95/55 12/30/18 02:44 85/54 12/30/18 02:30 117 17 124/71 (88) 91 12/30/18 02:00 117 17 90/53 (65) 94 12/30/18 02:00 90/53 12/30/18 01:30 99 21 99/67 (78) 94 12/30/18 01:00 100 21 94/58 (70) 94 12/30/18 01:00 94/56 12/30/18 00:30 100 20 95/63 (74) 92 12/30/18 00:00 100 12/30/18 00:00 98.4 100 20 89/59 (69) 92 12/30/18 00:00 100/60 12/30/18 00:00 Simple Mask 10.0 12/29/18 23:30 100 20 90/55 (67) 92 12/29/18 23:00 89/58 12/29/18 23:00 100 20 89/58 (68) 92 12/29/18 22:30 101 27 109/92 (98) 93 12/29/18 22:00 101 22 96/63 (74) 93 12/29/18 22:00 96/63 12/29/18 21:30 100 23 77/43 (54) 93 12/29/18 21:00 91/66 12/29/18 21:00 99 23 91/66 (74) 93 12/29/18 20:49 94/60 12/29/18 20:30 102 26 92/63 (73) 93 12/29/18 20:00 98.0 102 22 114/55 (74) 93 12/29/18 20:00 102 12/29/18 20:00 Simple Mask 10.0 12/29/18 19:33 93 Venturi Mask 6.0 35 12/29/18 19:33 Venturi Mask 8.0 35 12/29/18 19:33 102 19 Venturi Mask 6.0 35 12/29/18 19:00 103 22 104/68 (80) 94 12/29/18 18:25 102 22 106/71 (83) 94 12/29/18 18:00 101 22 99/71 (80) 94 12/29/18 17:30 99 23 90/58 (69) 93 12/29/18 17:15 93/58 12/29/18 17:00 105 22 100/64 (76) 93 12/29/18 16:30 102 22 103/66 (78) 93 I&O Intake and Output 12/29/18 12/30/18 19:00 07:00 Intake Total 1372.70 ml 1635.06 ml Output Total 81 ml 98 ml Balance 1291.70 ml 1537.06 ml Intake IV Total 1372.70 ml 1635.06 ml Output Urine Total 81 ml 68 ml Other 30 ml Drains: other Cardiovascular: RSR Respiratory: decreased breath sounds Abdomen: soft, tenderness Extremities: no tenderness, no cyanosis Laboratory Tests Test 12/29/18 18:00 12/30/18 09:15 12/30/18 10:30 12/30/18 10:40 Prothrombin Time > 100.0 SEC (9.30-11.50) H Prothromb Time International Ratio > 10.0 (0.9-1.1) *H Activated Partial Thromboplast Time 58 SEC (23-33) H Arterial Blood pH 7.322 (7.350-7.450) Arterial Blood Partial Pressure CO2 22.8 mmHg (35.0-45.0) *L Arterial Blood Partial Pressure O2 56.7 mmHg (75.0-100.0) L Arterial Blood HCO3 11.5 mmol/L (22.0-26.0) *L Arterial Blood Oxygen Saturation 83.8 % (95-100) *L Arterial Blood Base Excess -12.7 (-2-2) *L Dk Test Positive Sodium Level 128 MMOL/L (136-145) L Potassium Level 5.2 MMOL/L (3.5-5.1) H Chloride Level 97 MMOL/L (98-107) L Carbon Dioxide Level 16 MMOL/L (21-32) L Anion Gap 15 mmol/L (5-15) Blood Urea Nitrogen 29 mg/dL (7-18) H Creatinine 1.1 MG/DL (0.55-1.30) Estimat Glomerular Filtration Rate mL/min (>60) Glucose Level 133 MG/DL (74-106) H Calcium Level 6.9 MG/DL (8.5-10.1) L Phosphorus Level 5.1 MG/DL (2.5-4.9) H Magnesium Level 1.9 MG/DL (1.8-2.4) Ferritin 107 NG/ML (8-388) Total Bilirubin 7.9 MG/DL (0.2-1.0) H Direct Bilirubin 6.1 MG/DL (0.0-0.3) H Aspartate Amino Transf (AST/SGOT) 2090 U/L (15-37) H Alanine Aminotransferase (ALT/SGPT) 595 U/L (12-78) H Alkaline Phosphatase 486 U/L (46-116) H Total Protein 5.0 G/DL (6.4-8.2) L Albumin 1.1 G/DL (3.4-5.0) L Globulin 3.9 g/dL Albumin/Globulin Ratio 0.3 (1.0-2.7) L Thyroid Stimulating Hormone (TSH) 0.747 uiU/mL (0.358-3.740) Free Thyroxine 1.24 NG/DL (0.76-1.46) White Blood Count 13.6 K/UL (4.8-10.8) H Red Blood Count 2.54 M/UL (4.20-5.40) L Hemoglobin 7.5 G/DL (12.0-16.0) #L Hematocrit 23.3 % (37.0-47.0) #L Mean Corpuscular Volume 92 FL (80-99) Mean Corpuscular Hemoglobin 29.7 PG (27.0-31.0) Mean Corpuscular Hemoglobin Concent 32.3 G/DL (32.0-36.0) Red Cell Distribution Width 16.9 % (11.6-14.8) H Platelet Count 100 K/UL (150-450) #L Mean Platelet Volume 7.9 FL (6.5-10.1) Neutrophils (%) (Auto) % (45.0-75.0) Lymphocytes (%) (Auto) % (20.0-45.0) Monocytes (%) (Auto) % (1.0-10.0) Eosinophils (%) (Auto) % (0.0-3.0) Basophils (%) (Auto) % (0.0-2.0) Differential Total Cells Counted 100 Neutrophils % (Manual) 93 % (45-75) H Lymphocytes % (Manual) 2 % (20-45) L Monocytes % (Manual) 4 % (1-10) Eosinophils % (Manual) 0 % (0-3) Basophils % (Manual) 0 % (0-2) Band Neutrophils 1 % (0-8) Nucleated Red Blood Cells 1 /100 WBC Platelet Estimate Decreased L Platelet Morphology Normal Spherocytes 1+ Reticulocyte Count 4.0 % (0.0-2.0) H Test 12/30/18 12:40 Prothrombin Time 97.5 SEC (9.30-11.50) H Prothromb Time International Ratio > 10.0 (0.9-1.1) *H Activated Partial Thromboplast Time 60 SEC (23-33) H Iron Level Pending Unsaturated Iron Binding Pending Vitamin B12 Level Pending Folate Pending Plan Problems: (1) Acute cholecystitis Assessment & Plan: leukocytosis, septic, CT and US noted. discussed with radiologist she is not a surgical candidate given history will attempt medical management but may need cholecystostomy tube IV Abx trend labs will discuss with multidisciplinary team spoke with family no invasive intervention or drains plan for comfort care. thank you (2) Cholangiocarcinoma Assessment & Plan: appreciate oncology input CT with Cholelithiasis. Edematous gallbladder wall with gallbladder wall distention and pericholecystic fluid are suspicious for acute cholecystitis. Correlate with clinical findings, consider hepatobiliary nuclear scan as clinically indicated Left-sided internal/external biliary drain and endobiliary stent noted. No biliary ductal dilatation Lymphadenopathy within the peripancreatic/periduodenal fat, and lesser sac likely related to stated clinical history of biliary neoplasm Free intraperitoneal fluid Other manifestations of anasarca, including diffuse edema of the subcutaneous fat, bilateral pleural effusions Evidence of prior vascular embolic procedure, presumably to the central hepatic arteries Colonic diverticulosis Liver cysts. Subcentimeter low-attenuation liver lesions, too small to characterize, most likely benign simple cysts or bile hamartomas Nonspecific hypertrophy of the left adrenal Gastric distention, nonspecific, could indicate recent fluid ingestion, gastric outlet obstruction or gastroparesis also possible Drake catheter. Some retained urine despite the Drake catheter Left lower pole renal calyceal calcification or more likely tiny hyperdense cyst (3) Septic shock Assessment & Plan: iv fluids iv abx wean pressors as tolerated Dylan Loera Dec 30, 2018 16:22
--- NOTE | 2018-12-30 16:54 | NUR ---
PRONOUNCEMENT: No Code. Called to pronounce patient. Absence of spontaneous respirations, no cardiac or breath sounds on auscultation. Pupils fixed and dilated. No carotid pulse or chest movement. Patient at 1600. DR notified PER [id number]. Family was notified at .bedside
[2018-12-30] MEDS ORDERED: NS 275ml ONE (17:23)
[2018-12-30] MEDS ORDERED: Tubing IV Secondary IV ONE (17:23)
--- NOTE | 2018-12-30 17:40 | Cardiology Report ---
APPROVED REPORT EXAM: Two-dimensional and M-mode echocardiogram with Doppler and color Doppler. INDICATION LV FUNCTION M-Mode DIMENSIONS IVSd1.0 (0.7-1.1cm)Left Atrium (MM)3.5 (1.6-4.0cm) LVDd2.6 (3.5-5.6cm)Aortic Root2.9 (2.0-3.7cm) PWd1.3 (0.7-1.1cm)Aortic Cusp Exc.1.7 (1.5-2.0cm) IVSs1.3 cm LVDs1.6 (2.5-4.0cm) PWs1.2 cm Normal left ventricular chamber size. This study precludes analysis of segmental wall motion. Left ventricular ejection fraction appears to be grossly normal. No evidence of left ventricular hypertrophy . No evidence of pericardial effusion. Pleural effusion present. Left atrial chamber size appears to be normal . Mild right atrial enlargement . Mild right ventricular enlargement . Focal aortic valve sclerosis with normal cusp excursion. Mildly Thickened mitral valve leaflets with normal excursion. Pulmonic valve not well visualized. Normal tricuspid valve structure. IVC at normal size with physiologic collapse . A color flow and spectral Doppler study was performed and revealed: No aortic insufficiency . Trace mitral regurgitation. Mitral diastolic velocities suggest reduced left ventricular relaxation c/w mild LV diastolic dysfunction (Grade I ). Moderate tricuspid regurgitation. Tricuspid systolic velocities suggests peak right ventricular systolic pressure of 58mmHg,consistent with moderate pulmonary hypertension .
--- NOTE | 2018-12-30 18:08 | Cardiology Report ---
APPROVED REPORT EKG Measurement Heart [id number] Sinus tachycardia with occasional premature ventricular complexes Low voltage QRS Right bundle branch block Possible Lateral infarct, age undetermined Abnormal ECG
[2018-12-30] MEDS ORDERED: Dyna-Hex 2% Top Sol 2oz TOPIC SCH ×2 (20:00)
[2018-12-30] MEDS ORDERED: Amikacin 750 MG in NS 110 ML IV SCH (23:00)
--- NOTE | 2019-01-03 08:26 | Discharge Summary ---
Discharge Summary Discharge Summary _ DATE OF ADMISSION: 12/28/2018 DATE OF DISCHARGE: 12/30/2018 BRIEF SUMMARY: Patient is a 73-year-old female, who presented to ED due to respiratory failure. Patient was seen by Dr. Alcantara on 12/28/2018. The patient was found to be "ill appearing." EMS was called and patient was transported to [facility]. 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 She underwent a biopsy on 2018, which confirmed cholangiocarcinoma versus pancreatic cancer. She was at the oncologist office when she was found to be ill-appearing, and was transported to [place] emergency room. On evaluation at ED, she was hypotensive and tachypneic. She was placed on O2 mask. Blood work showed WBC of 15, hemoglobin 14, hematocrit 41. Sodium was 130, potassium 5.3, chloride 97. LFTs were elevated. Total bilirubin 5.9, direct bilirubin 5. Chest x-ray showed left lower lobe effusion. CT of the abdomen and pelvis showed cholelithiasis with edematous gallbladder wall and gallbladder wall distention and pericholecystic fluid suspicious for acute cholecystitis. She was given aggressive IV hydration. She was started on levo fed. CODE STATUS was reported to be full code per family. She was then admitted ICU for septic shock, cholecystitis, cholangiocarcinoma and hyperbilirubinemia. Surgical evaluation was done. And was recently admitted at [facility] and was discharged. She had biliary drain and biliary stent. She was noted to have jaundice and tenderness on the right upper quadrant. Abdominal ultrasound showed a markedly abnormal gallbladder with gallstones, sludge and irregular marked wall thickening as well as pericholecystic fluid. There was a question of lead discontinuity in the gallbladder wall which may be communicating with an adjacent fluid collection, concerning for perforation. Biliary stent and internal/external drainage catheter was in place. No definite biliary ductal dilatation. Patient is not a surgical candidate. Would benefit from medical management cholecystostomy tube. She was given ertapenem and vancomycin. Patient had poor prognosis. Per family wishes, patient was placed on DNR and DNI, and comfort care. Patient was given comfort care. She eventually . FINAL DIAGNOSES: Septic shock Sepsis, due to pneumonia, biliary infection, and others Acute cholecystitis Metastatic cholangiocarcinoma Pleural effusion with possible right middle lobe pneumonia Anemia Hyperbilirubinemia Acute respiratory failure requiring high flow oxygenation Hospice care/ comfort care DISPOSITION: Patient . I have been assigned to complete a discharge summary on this account, I was not involved with the patient's management. Kathrine Noe NP Jan 03, 2019 08:26
== END 2018-12-30 17:24 | disposition expired | DRG 871 ==
LOC: EDBD 16:47 → EDBEDREQSVC 17:04 → EMR 17:14 → ICU 17:22 → EDBEDREQ 18:08
DX: A41.9 Sepsis, unspecified organism (principal); R65.21 Severe sepsis with septic shock; J18.9 Pneumonia, unspecified organism; J96.00 Acute respiratory failure, unspecified whether with hypoxia or hypercapnia; N17.0 Acute kidney failure with tubular necrosis; K81.0 Acute cholecystitis; C22.1 Intrahepatic bile duct carcinoma; C79.9 Secondary malignant neoplasm of unspecified site; Z51.5 Encounter for palliative care; Z66 Do not resuscitate; D64.9 Anemia, unspecified; E80.6 Other disorders of bilirubin metabolism
CPT/HCPCS: 36415; 36600; 51702; 71045; 74176; 76700; 80053; 81001; 81003; 82043; 82248; 82550; 82553; 82570; 82607; 82728; 82746; 82803; 83540; 83550; 83735; 84100; 84133; 84300; 84439; 84443; 84484; 84550; 85007; 85025; 85044; 85610; 85730; 86850; 86900; 86901; 86920; 87040; 87070; 87081; 87086; 87205; 89050; 93005; 93306; 94640; 94664; 94760; 96360; 99291; J7620